=== PATIENT | male | born 1950 | race Caucasian/White ===

== ENCOUNTER 2019-09-26 16:54 | Observation (INO) | payer MEDICARE ==
[2019-09-26] MEDS ORDERED: SODIUM CHLORIDE 0.9% 500 ML 500 ML IV STA (18:19)
[2019-09-26 18:23] LABS: Glucose,Whole Blood 113 mg/dL (75-99)
--- NOTE | 2019-09-26 18:24 | ED ---
General Adult HPI - General Chief complaint: Neuro Symptoms/Deficit Stated complaint: right side weakness/tingling Time Seen by Provider: 09/26/19 18:07 Source: patient, family Mode of arrival: wheelchair Limitations: no limitations - History of Present Illness Initial comments: 69-year-old male patient past medical history significant for diabetes mellitus, high cholesterol, hypertension presents to the emergency department today for evaluation of right sided numbness, tingling, and weakness. Patient states that his symptoms started around 12:30 this afternoon. Patient states that he got out of his vehicle and almost fell to the ground due to weakness in the right leg. Patient states he does have some issues with his niece who didn't think an ything of it and continued onto his water aerobics class. Patient states that once he got out of the pool he noticed that the right side of his body was still feeling tingly and numb. States he was striking his right foot. Patient states that the right side of his face also feels numb and tingly. Patient denies history of similar symptoms. Patient denies any headache, blurry, or double vision. States he is having some intermittent dizziness. Patient's family member deny any difficulty with speech. Denies any recent head injury. Does take a baby aspirin daily. Patient denies any recent rash, fever, chills, shortness breath, chest pain, abdominal pain, nausea, vomiting, diarrhea, cons tipation, back pain, hematuria, dysuria, urinary urgency, urinary frequency, or any other complaints. - Related Data Home Medications Medication Instructions Recorded Confirmed Allopurinol [Zyloprim] 100 mg PO DAILY 09/27/18 09/27/18 Anastrozole [Arimidex] 1 mg PO DAILY 09/27/18 09/27/18 Aspirin 81 mg PO DAILY 09/27/18 09/27/18 Carvedilol [Coreg] 3.125 mg PO DAILY 09/27/18 09/27/18 Cholestyramine/Aspartame 239.4 gm PO DAILY 09/27/18 09/27/18 [Cholestyramine Light Powder] Gabapentin [Neurontin] 300 mg PO DAILY 09/27/18 09/27/18 Gemfibrozil [Lopid] 600 mg PO DAILY 09/27/18 09/27/18 Levothyroxine Sodium [Synthroid] 200 mcg PO DAILY 09/27/18 09/27/18 Linagliptin [Tradjenta] 5 mg PO DAILY 09/27/18 09/27/18 Losartan [Cozaar] 50 mg PO DAILY 09/27/18 09/27/18 Meloxicam 15 mg PO DAILY 09/27/18 09/27/18 Montelukast [Singulair] 10 mg PO DAILY 09/27/18 09/27/18 Potassium Citrate [Potassium 10 meq PO DAILY 09/27/18 09/27/18 Citrate ER] Pravastatin Sodium [Pravachol] 20 mg PO DAILY 09/27/18 09/27/18 Tamsulosin [Flomax] 0.4 mg PO DAILY 09/27/18 09/27/18 Testosterone Cypionate 100 mg IM WEEKLY 09/27/18 09/27/18 [Depo-Testosterone] amLODIPine [Norvasc] 10 mg PO DAILY 09/27/18 09/27/18 metFORMIN HCL 1,000 mg PO BID 09/27/18 09/27/18 Allergies Allergy/AdvReac Type Severity Reaction Status Date / Time sitagliptin [From Januvia] AdvReac Unknown Verified 09/26/19 17:00 tramadol AdvReac Unknown Verified 09/26/19 17:00 Review of Systems ROS Statement: Those systems with pertinent positive or pertinent negative responses have been documented in the HPI. ROS Other: All systems not noted in ROS Statement are negative. Past Medical History Past Medical History: GERD/Reflux, Hyperlipidemia, Hypertension, Sleep Apnea/CPAP/BIPAP Additional Past Medical History / Comment(s): BPH, Gouty Arturitis, testicular disorder, History of Any Multi-Drug Resistant Organisms: None Reported Past Surgical History: Cholecystectomy Past Anesthesia/Blood Transfusion Reactions: No Reported Reaction Past Psychological History: No Psychological Hx Reported Smoking Status: Former smoker Past Alcohol Use History: None Reported Past Drug Use History: None Reported General Exam Limitations: no limitations General appearance: alert, in no apparent distress, other (Physical well- developed, well-nourished elderly male patient in no acute distress. Vital signs upon presentation are temperature 98.0F, pulse 93, respirations 18, blood pressure 171/76, pulse ox 98% on room air.) Eye exam: Present: normal appearance, PERRL, EOMI. Absent: scleral icterus, conjunctival injection, nystagmus, periorbital swelling ENT exam: Present: normal exam, normal oropharynx, mucous membranes moist Respiratory exam: Present: normal lung sounds bilaterally. Absent: respiratory distress, wheezes, rales, rhonchi, stridor Cardiovascular Exam: Present: regular rate, normal rhythm, normal heart sounds. Absent: systolic murmur, diastolic murmur, rubs, gallop, clicks GI/Abdominal exam: Present: soft, normal bowel sounds. Absent: distended, tenderness, guarding, rebound, rigid Neurological exam: Present: alert, oriented X3, CN II-XII intact Expanded Speech: Present: fluid speech Cranial nerves: EOM's Intact: Normal, Tongue Deviation: Normal, Nystagmus: Normal, Facial Sensation: Abnormal Right, Facial Palsy with Forehead Movement: Normal, Facial Palsy without Forehead Movement: Normal Upper motor neuron: Pronator Drift: Abnormal Right Sensory exam: Upper Extremity Light Touch: Abnormal Right, Upper Extremity Pin Prick: Abnormal Right, Lower Extremity Light Touch: Abnormal Right, Lower Extremity Pin Prick: Abnormal Right Motor strength exam: RUE: 5, LUE: 5, RLE: 4, LLE: 5 Eye Response: (4) open spontaneously Motor Response: (6) obeys commands Verbal Response: (5) oriented Jewel Total: 15 Psychiatric exam: Present: normal affect Skin exam: Present: warm, dry, intact, normal color. Absent: rash Course Vital Signs 09/26/19 09/26/19 09/26/19 17:00 18:15 18:30 Temperature 98 F Pulse Rate 93 77 82 Respiratory 18 18 18 Rate Blood Pressure 171/76 173/83 164/84 O2 Sat by Pulse 98 96 94 L Oximetry 09/26/19 09/26/19 09/26/19 18:45 19:00 19:15 Temperature Pulse Rate 76 75 79 Respiratory 16 16 16 Rate Blood Pressure 127/65 135/75 136/66 O2 Sat by Pulse 96 97 97 Oximetry 09/26/19 09/26/19 19:30 20:00 Temperature Pulse Rate 75 82 Respiratory 16 16 Rate Blood Pressure 162/75 151/76 O2 Sat by Pulse 96 95 Oximetry Medical Decision Making - Medical Decision Making 69-year-old male patient passed medical history significant for diabetes mellitus and hypertension presents to the emergency department today for e valuation of right-sided weakness, numbness, and tingling. Symptoms are gone 12:30 this afternoon. Upon arrival patient was still exhibiting symptoms and states that his blood right leg feels more weak than at time of onset. Physical examination did reveal sensation disturbance to the right side, right leg drift, and right leg weakness. He is otherwise neurologically intact. Labs reviewed and were unremarkable. CT brain without contrast was obtained and showed no major abnormalities. Case was discussed with Dr. Baker, neurointervention who has no new recommendations. We will admit to the hospital for further evaluation by neurology. Patient is agreeable with this plan - Lab Data Result diagrams: 09/26/19 18:16 09/26/19 18:16 Lab Results 09/26/19 09/26/19 09/26/19 Range/Units 18:16 18:16 18:16 WBC 10.5 (3.8-10.6) k/uL RBC 6.01 H (4.30-5.90) m/uL Hgb 14.3 (13.0-17.5) gm/dL Hct 45.8 (39.0-53.0) % MCV 76.3 L (80.0-100.0) fL MCH 23.8 L (25.0-35.0) pg MCHC 31.3 (31.0-37.0) g/dL RDW 15.8 H (11.5-15.5) % Plt Count 251 (150-450) k/uL Neutrophils % 70 % Lymphocytes % 18 % Monocytes % 6 % Eosinophils % 4 % Basophils % 0 % Neutrophils # 7.4 (1.3-7.7) k/uL Lymphocytes # 1.9 (1.0-4.8) k/uL Monocytes # 0.6 (0-1.0) k/uL Eosinophils # 0.4 (0-0.7) k/uL Basophils # 0.0 (0-0.2) k/uL Hypochromasia Moderate Microcytosis Slight PT 9.6 (9.0-12.0) sec INR 0.9 (<1.2) APTT 23.5 (22.0-30.0) sec Sodium 138 (137-145) mmol/L Potassium 5.2 H (3.5-5.1) mmol/L Chloride 104 (98-107) mmol/L Carbon Dioxide 23 (22-30) mmol/L Anion Gap 11 mmol/L BUN 17 (9-20) mg/dL Creatinine 0.95 (0.66-1.25) mg/dL Est GFR (CKD-EPI)AfAm >90 (>60 ml/min/1.73 sqM) Est GFR (CKD-EPI)NonAf 81 (>60 ml/min/1.73 sqM) Glucose 110 H (74-99) mg/dL POC Glucose (mg/dL) (75-99) mg/dL POC Glu Brand Engineer ID Calcium 9.4 (8.4-10.2) mg/dL Total Bilirubin 0.6 (0.2-1.3) mg/dL AST 61 H (17-59) U/L ALT 47 (4-49) U/L Alkaline Phosphatase 74 (38-126) U/L Troponin I (0.000-0.034) ng/mL Total Protein 7.6 (6.3-8.2) g/dL Albumin 4.6 (3.5-5.0) g/dL Urine Color Urine Appearance (Clear) Urine pH (5.0-8.0) Ur Specific [place] (1.001-1.035) Urine Protein (Negative) Urine Glucose (UA) (Negative) Urine Ketones (Negative) Urine Blood (Negative) Urine Nitrite (Negative) Urine Bilirubin (Negative) Urine Urobilinogen (<2.0) mg/dL Ur Leukocyte Esterase (Negative) Urine RBC (0-5) /hpf Urine WBC (0-5) /hpf Urine Mucus (None) /hpf 09/26/19 09/26/19 09/26/19 Range/Units 18:16 18:22 19:09 WBC (3.8-10.6) k/uL RBC (4.30-5.90) m/uL Hgb (13.0-17.5) gm/dL Hct (39.0-53.0) % MCV (80.0-100.0) fL MCH (25.0-35.0) pg MCHC (31.0-37.0) g/dL RDW (11.5-15.5) % Plt Count (150-450) k/uL Neutrophils % % Lymphocytes % % Monocytes % % Eosinophils % % Basophils % % Neutrophils # (1.3-7.7) k/uL Lymphocytes # (1.0-4.8) k/uL Monocytes # (0-1.0) k/uL Eosinophils # (0-0.7) k/uL Basophils # (0-0.2) k/uL Hypochromasia Microcytosis PT (9.0-12.0) sec INR (<1.2) APTT (22.0-30.0) sec Sodium (137-145) mmol/L Potassium (3.5-5.1) mmol/L Chloride (98-107) mmol/L Carbon Dioxide (22-30) mmol/L Anion Gap mmol/L BUN (9-20) mg/dL Creatinine (0.66-1.25) mg/dL Est GFR (CKD-EPI)AfAm (>60 ml/min/1.73 sqM) Est GFR (CKD-EPI)NonAf (>60 ml/min/1.73 sqM) Glucose (74-99) mg/dL POC Glucose (mg/dL) 113 H (75-99) mg/dL POC Glu Brand Engineer ID Jack Bentley Calcium (8.4-10.2) mg/dL Total Bilirubin (0.2-1.3) mg/dL AST (17-59) U/L ALT (4-49) U/L Alkaline Phosphatase (38-126) U/L Troponin I <0.012 (0.000-0.034) ng/mL Total Protein (6.3-8.2) g/dL Albumin (3.5-5.0) g/dL Urine Color Light Yellow Urine Appearance Clear (Clear) Urine pH 6.0 (5.0-8.0) Ur Specific [place] 1.032 (1.001-1.035) Urine Protein Trace H (Negative) Urine Glucose (UA) Negative (Negative) Urine Ketones 1+ H (Negative) Urine Blood Small H (Negative) Urine Nitrite Negative (Negative) Urine Bilirubin Negative (Negative) Urine Urobilinogen <2.0 (<2.0) mg/dL Ur Leukocyte Esterase Negative (Negative) Urine RBC 3 (0-5) /hpf Urine WBC <1 (0-5) /hpf Urine Mucus Rare H (None) /hpf - Radiology Data Radiology results: report reviewed, image reviewed CT brain without contrast was obtained. Report reviewed in its entirety. Impression by Dr. Chase Darden shows no acute process. CT angiography of the head and neck was obtained. Report reviewed in its entirety. Impression by Dr. Chase Darden shows no significant abnormality is seen. Two-view x-ray of the chest is obtained. Report is reviewed in its entirety. Impression by Dr. Chase Darden shows no acute process. Disposition Clinical Impression: CVA (cerebral vascular accident) Disposition: ADMITTED IP TO THIS [facility] Condition: Serious Referrals: Sunny Mckeon DO [Primary Care Provider] - 1-2 days Decision to Admit Reason: Admit from EC Decision Date: 09/26/19 Decision Time: 20:12
[2019-09-26 18:49] LABS: Basophils % (A) 0 %; Eosinophils # (A) 0.4 k/uL (0-0.7); Eosinophils % (A) 4 %; HCT 45.8 % (39.0-53.0); HGB 14.3 gm/dL (13.0-17.5); Hypochromasia Moderate; Lymphocytes # (A) 1.9 k/uL (1.0-4.8); Lymphocytes % (A) 18 %; MCH 23.8 pg (25.0-35.0); MCHC 31.3 g/dL (31.0-37.0); MCV 76.3 fL (80.0-100.0); Mean Platelet Volume 7.1; Microcytosis Slight; Monocytes # (A) 0.6 k/uL (0-1.0); Monocytes % (A) 6 %; Neutrophils # (A) 7.4 k/uL (1.3-7.7); Neutrophils % (A) 70 %; Platelet Count 251 k/uL (150-450); RBC 6.01 m/uL (4.30-5.90); RDW 15.8 % (11.5-15.5); WBC 10.5 k/uL (3.8-10.6)
[2019-09-26 18:54] LABS: ALT 47 U/L (4-49); AST 61 U/L (17-59); African American GFR (CKD) >90 (>60 ml/min/1.73 sqM); Albumin 4.6 g/dL (3.5-5.0); Alkaline Phosphatase 74 U/L (38-126); Anion Gap 11 mmol/L; Blood Urea Nitrogen 17 mg/dL (9-20); Calcium 9.4 mg/dL (8.4-10.2); Carbon Dioxide 23 mmol/L (22-30); Chloride 104 mmol/L (98-107); Glucose 110 mg/dL (74-99); Non-African American GFR(CKD) 81 (>60 ml/min/1.73 sqM); Sodium 138 mmol/L (137-145); Total Bilirubin 0.6 mg/dL (0.2-1.3); Total Protein 7.6 g/dL (6.3-8.2)
[2019-09-26 18:55] LABS: INR 0.9 (<1.2); Partial Thromboplastin Time 23.5 sec (22.0-30.0); Prothrombin Time 9.6 sec (9.0-12.0)
[2019-09-26 18:57] LABS: Potassium 5.2 mmol/L (3.5-5.1)
--- NOTE | 2019-09-26 19:03 | CT ---
EXAMINATION: CT brain wo con DATE AND TIME: 09/26/2019 6:43 PM CLINICAL INDICATION: PHH; Neuro deficit, acute, stroke suspected TECHNIQUE: Standard departmental protocol. DLP: 1176.8 mGy-cm COMPARISON: None. FINDINGS: The calvarium is intact. There is no intracranial hemorrhage. There is no intracranial mass or mass effect. No definite new intra-axial or extra-axial attenuation defect. The paranasal sinuses, middle ear cavities, and mastoid sinus air cells are clear. The orbits are unremarkable. IMPRESSION: NO ACUTE PROCESS.
--- NOTE | 2019-09-26 19:13 | CT ---
EXAMINATION TYPE: CODE STROKE: CTA head neck DATE OF EXAM: 09/26/2019 HISTORY: Right sided weakness and numbness. COMPARISON: CT DLP: 764.1 mGycm. Automated Exposure Control for Dose Reduction was Utilized. TECHNIQUE: CTA scan of the neck is performed with IV Contrast, patient injected with 65ml mL of Isov ue 370, axial images are obtained, coronal and sagittal reformatted images are reviewed. Three-D carlton nstructed images are created on an independent workstation and reviewed. NECK CTA FINDINGS CAROTID ARTERIAL SYSTEMS: The right CCA is tortuous but widely patent. The right ICA is prominently tortuous but patent without hemodynamically significant stenosis or dissection. The right ECA and its branches are patent withou t hemodynamically significant stenosis. The left CCA and ICA are tortuous but are without hemodynamically significant stenosis or dissection. Left ECA and its branches are patent without hemodynamic significant stenosis. VERTEBRAL ARTERY SYSTEMS: Both the right and left vertebral arteries are widely patent throughout the ir cervical course. OTHER: No incidentals. HEAD CTA FINDINGS ANTERIOR ARTERIAL CIRCULATION: Widely patent without evidence of the significant stenosis, filling de fect, or aneurysm. POSTERIOR ARTERIAL CIRCULATION: Widely patent without evidence of the significant stenosis, filling d efect, or aneurysm. OTHER: Contrast enhancement pattern is negative as seen. There are no incidental findings. IMPRESSION: NO SIGNIFICANT ABNORMALITY IS SEEN.
[2019-09-26 19:22] LABS: Appearance,Urine Clear (Clear); Bilirubin,Urine Negative (Negative); Blood,Urine Small (Negative); Color,Urine Light Yellow; Glucose,Urine (UA) Negative (Negative); Ketones,Urine 1+ (Negative); Leukocyte Esterase,Urine Negative (Negative); Mucus,Urine Rare /hpf; Nitrite,Urine Negative (Negative); Protein,Urine Trace (Negative); RBC,Urine 3 /hpf (0-5); Specific Gravity,Urine 1.032 (1.001-1.035); Urobilinogen,Urine <2.0 mg/dL (<2.0); WBC,Urine <1 /hpf (0-5)
--- NOTE | 2019-09-26 19:33 | XR ---
EXAMINATION: XR chest 2V DATE AND TIME: 09/26/2019 6:46 PM CLINICAL INDICATION: PHH; altered mental status TECHNIQUE: Departmental protocol COMPARISON: None FINDINGS: The lungs are clear. The pleural spaces are negative. The cardiac silhouette is mildly enlarged. The remainder of the mediastinal silhouette is unremarkabl e. The skeletal structures and soft tissues are negative for acute findings. IMPRESSION: NO ACUTE PROCESS.
[2019-09-26] MEDS ORDERED: ONDANSETRON 4 MG/2 ML VIAL IVP PRN (20:12)
[2019-09-26] MEDS ORDERED: NALOXONE 0.4 MG/ML 1 ML VIAL IV PRN (20:12)
[2019-09-26] MEDS ORDERED: ASPIRIN 81 MG PO STA (20:12)
[2019-09-26] MEDS ORDERED: metFORMIN 500 MG TAB PO STA (20:58)
[2019-09-26] MEDS ORDERED: INSULIN DETEMIR (LEVEMIR) 100 UNIT/ML SYR SQ STA ×2 (20:58→22:03)
[2019-09-26 21:29] LABS: Glucose,Whole Blood 115 mg/dL (75-99)
[2019-09-27 06:15] LABS: Glucose,Whole Blood 85 mg/dL (75-99)
[2019-09-27] MEDS: ASPIRIN 325 MG TAB PO SCH (09:16)
[2019-09-27] MEDS ORDERED: LOSARTAN 25 MG TAB PO PRN (11:21)
--- NOTE | 2019-09-27 12:35 | P.HPIM ---
History of Present Illness 68-year-old pleasant male came in with complaints of tingling and numbness in the right cheek area localized in the small area of the cheek along with possible weakness in the right leg upon examination patient doesn't have any weakness in both upper leg upper limbs and lower limbs patient does have knee issues and miniscule issues. Patient had a fall because his knees gave up yesterday. Patient's tingling M9 numbness in the face resolved at this time. Patient denied any other headache any other focal weakness visual problems hearing problems. Patient is complaining of some intermittent dizziness. Review of Systems REVIEW OF SYSTEMS: CONSTITUTIONAL: No fever, no malaise, no fatigue. HEENT: No recent visual problems or hearing problems. Denied any sore throat. CARDIOVASCULAR: No chest pain, orthopnea, PND, no palpitations, no syncope. PULMONARY: No shortness of breath, no cough, no hemoptysis. GASTROINTESTINAL: No diarrhea, no nausea, no vomiting, no abdominal pain. NEUROLOGICAL: No headaches, HEMATOLOGICAL: Denies any bleeding or petechiae. GENITOURINARY: Denies any burning micturition, frequency, or urgency. MUSCULOSKELETAL/RHEUMATOLOGICAL: Denies any joint pain, swelling, or any muscle pain. ENDOCRINE: Denies any polyuria or polydipsia. The rest of the 14-point review of systems is negative. Past Medical History Past Medical History: GERD/Reflux, Hyperlipidemia, Hypertension, Sleep Apnea/CPAP/BIPAP Additional Past Medical History / Comment(s): BPH, Gouty Arturitis, testicular disorder, History of Any Multi-Drug Resistant Organisms: None Reported Past Surgical History: Cholecystectomy Past Anesthesia/Blood Transfusion Reactions: No Reported Reaction Past Psychological History: No Psychological Hx Reported Smoking Status: Former smoker Past Alcohol Use History: None Reported Past Drug Use History: None Reported Medications and Allergies Home Medications Medication Instructions Recorded Confirmed Type Allopurinol [Zyloprim] 100 mg PO DAILY 09/27/18 09/26/19 History Anastrozole [Arimidex] 1 mg PO TH 09/27/18 09/26/19 History Aspirin 81 mg PO DAILY 09/27/18 09/26/19 History Levothyroxine Sodium [Synthroid] 200 mcg PO DAILY@0700 09/27/18 09/26/19 History Meloxicam 15 mg PO DAILY 09/27/18 09/26/19 History Potassium Citrate [Potassium 20 meq PO BID 09/27/18 09/26/19 History Citrate ER] Pravastatin Sodium [Pravachol] 20 mg PO HS 09/27/18 09/26/19 History Tamsulosin [Flomax] 0.8 mg PO DAILY 09/27/18 09/26/19 History Testosterone Cypionate 100 mg IM [id number] 09/27/18 09/26/19 History [Depo-Testosterone] amLODIPine [Norvasc] 10 mg PO DAILY 09/27/18 09/26/19 History metFORMIN HCL 1,000 mg PO BID 09/27/18 09/26/19 History Acetaminophen Tab [Tylenol] 650 mg PO BID PRN 09/26/19 09/26/19 History Cholecalciferol [Vitamin D3 (25 5,000 unit PO DAILY@0700 09/26/19 09/26/19 History Mcg = 1000 Iu)] Cholestyramine/Aspartame 1 packet PO DAILY 09/26/19 09/26/19 History [Cholestyramine Light Packet] Cinnamon Bark [Cinnamon] 1,000 mg PO DAILY 09/26/19 09/26/19 History Cyanocobalamin (Vitamin B-12) 5,000 mcg PO DAILY 09/26/19 09/26/19 History [Vitamin B-12] Insulin Glargine,Hum.rec.anlog 58 unit SQ BID 09/26/19 09/26/19 History [Lantus Solostar] Krill Oil 500 mg PO DAILY 09/26/19 09/26/19 History Losartan [Cozaar] 25 mg PO DAILY PRN 09/26/19 09/26/19 History Multivit-Min/FA/Lycopen/Lutein 1 tab PO DAILY 09/26/19 09/26/19 History [Centrum Silver Men Tablet] Omeprazole [PriLOSEC] 20 mg PO DAILY@0700 09/26/19 09/26/19 History Pyridoxine [Vitamin B-6] 25 mg PO DAILY@0700 09/26/19 09/26/19 History Zinc 50 mg PO DAILY 09/26/19 09/26/19 History Allergies Allergy/AdvReac Type Severity Reaction Status Date / Time sitagliptin [From ] AdvReac Unknown Verified 09/26/19 22:13 tramadol AdvReac Unknown Verified 09/26/19 22:13 Physical Exam Vitals: Vital Signs Temp Pulse Pulse Resp BP BP Pulse Ox 09/27/19 08:00 97.7 F 72 16 148/78 97 09/27/19 05:13 18 09/27/19 04:54 98 F 76 18 170/86 98 09/27/19 03:30 84 18 151/78 96 09/26/19 23:41 76 16 154/76 96 09/26/19 22:30 98.0 F 75 16 149/76 95 09/26/19 21:30 85 16 162/75 97 09/26/19 21:00 78 16 154/66 95 09/26/19 20:30 78 16 158/84 96 09/26/19 20:00 82 16 151/76 95 09/26/19 19:30 75 16 162/75 96 09/26/19 19:15 79 16 136/66 97 09/26/19 19:00 75 16 135/75 97 09/26/19 18:45 76 16 127/65 96 09/26/19 18:30 82 18 164/84 94 L 09/26/19 18:15 77 18 173/83 96 09/26/19 17:00 98 F 93 18 171/76 98 Intake and Output 09/26/19 09/27/19 09/27/19 22:59 06:59 14:59 Intake Total 240 Balance 240 Intake: Oral 240 Other: Voiding Method Toilet Toilet # Voids 1 Weight 174.179 kg 168.5 kg PHYSICAL EXAMINATION: GENERAL: The patient is alert and oriented x3, not in any acute distress. Well developed, well nourished. HEENT: Pupils are round and equally reacting to light. EOMI. No scleral icterus. No conjunctival pallor. Normocephalic, atraumatic. No pharyngeal erythema. No thyromegaly. CARDIOVASCULAR: S1 and S2 present. No murmurs, rubs, or gallops. PULMONARY: Chest is clear to auscultation, no wheezing or crackles. ABDOMEN: Soft, nontender, nondistended, normoactive bowel sounds. No palpable organomegaly. MUSCULOSKELETAL: No joint swelling or deformity. EXTREMITIES: No cyanosis, clubbing, or pedal edema. NEUROLOGICAL: Gross neurological examination did not reveal any focal deficits. SKIN: No rashes. Results CBC & Chem 7: 09/26/19 18:16 09/26/19 18:16 Labs: Abnormal Lab Results - Last 24 Hours (Table) 09/26/19 09/26/19 09/26/19 Range/Units 18:16 18:16 18:22 RBC 6.01 H (4.30-5.90) m/uL MCV 76.3 L (80.0-100.0) fL MCH 23.8 L (25.0-35.0) pg RDW 15.8 H (11.5-15.5) % Potassium 5.2 H (3.5-5.1) mmol/L Glucose 110 H (74-99) mg/dL POC Glucose (mg/dL) 113 H (75-99) mg/dL AST 61 H (17-59) U/L Urine Protein (Negative) Urine Ketones (Negative) Urine Blood (Negative) Urine Mucus (None) /hpf 09/26/19 09/26/19 Range/Units 19:09 21:28 RBC (4.30-5.90) m/uL MCV (80.0-100.0) fL MCH (25.0-35.0) pg RDW (11.5-15.5) % Potassium (3.5-5.1) mmol/L Glucose (74-99) mg/dL POC Glucose (mg/dL) 115 H (75-99) mg/dL AST (17-59) U/L Urine Protein Trace H (Negative) Urine Ketones 1+ H (Negative) Urine Blood Small H (Negative) Urine Mucus Rare H (None) /hpf Thrombosis Risk Factor Assmnt - Choose All That Apply Each Risk Factor Represents 2 Points: Age 61-74 years Thrombosis Risk Factor Assessment Total Risk Factor Score: 2 Thrombosis Risk Factor Assessment Level: Low Risk Assessment and Plan Plan: symptoms of tingling and numbness of the right side of the face his symptomology is not consistent with stroke or TIA probably related to local nerve causes. Patient was also complaining of some weakness and tingling numbness in the right hand which is also secondary to local nerve causes there is no evidence of CVA or TIA. Patient will be evaluated by neurology although workup is done except for the echocardiogram which will be ordered CT angios the head and neck did not show any significant abnormality CT of the head was done as well which did not show any significant abnormality I do not believe we'll need to change antiplatelet therapy patient takes aspirin at home which she will continue cleared by neurology patient will be discharged today. Likely there is no evidence of TIA or CVA -gastro-esophageal reflux disease -hyperlipemia -Hypertension -Sleep apnea For above-mentioned chronic medical problems patient will resume his home medications.
--- NOTE | 2019-09-27 12:35 | P.DS ---
Providers Date of admission: 09/26/19 19:57 Attending physician: Susanna Fowler Consults: 09/26/19 20:12 Consult Physician Routine Consulting Provider: Reyna Shah Consult Reason/Comments: CVA Do you want consulting provider notified?: Yes [facility] Course: please refer to HPI for further details Patient Condition at Discharge: Serious Plan - Discharge Summary Discharge Rx Participant: No New Discharge Prescriptions: No Action Aspirin 81 mg PO DAILY metFORMIN HCL 1,000 mg PO BID amLODIPine [Norvasc] 10 mg PO DAILY Testosterone Cypionate [Depo-Testosterone] 100 mg IM [id number] Tamsulosin [Flomax] 0.8 mg PO DAILY Pravastatin Sodium [Pravachol] 20 mg PO HS Potassium Citrate [Potassium Citrate ER] 20 meq PO BID Meloxicam 15 mg PO DAILY Levothyroxine Sodium [Synthroid] 200 mcg PO DAILY@0700 Anastrozole [Arimidex] 1 mg PO TH Allopurinol [Zyloprim] 100 mg PO DAILY Omeprazole [PriLOSEC] 20 mg PO DAILY@0700 Pyridoxine [Vitamin B-6] 25 mg PO DAILY@0700 Cholecalciferol [Vitamin D3 (25 Mcg = 1000 Iu)] 5,000 unit PO DAILY@0700 Zinc 50 mg PO DAILY Multivit-Min/FA/Lycopen/Lutein [Centrum Silver Men Tablet] 1 tab PO DAILY Krill Oil 500 mg PO DAILY Cinnamon Bark [Cinnamon] 1,000 mg PO DAILY Acetaminophen Tab [Tylenol] 650 mg PO BID PRN PRN Reason: Pain Cyanocobalamin (Vitamin B-12) [Vitamin B-12] 5,000 mcg PO DAILY Cholestyramine/Aspartame [Cholestyramine Light Packet] 1 packet PO DAILY Insulin Glargine,Hum.rec.anlog [Lantus Solostar] 58 unit SQ BID Losartan [Cozaar] 25 mg PO DAILY PRN PRN Reason: HIGH BLOOD PRESSURE Discharge Medication List Allopurinol [Zyloprim] 100 mg PO DAILY 09/27/18 [History] Anastrozole [Arimidex] 1 mg PO TH 09/27/18 [History] Aspirin 81 mg PO DAILY 09/27/18 [History] Levothyroxine Sodium [Synthroid] 200 mcg PO DAILY@0700 09/27/18 [History] Meloxicam 15 mg PO DAILY 09/27/18 [History] Potassium Citrate [Potassium Citrate ER] 20 meq PO BID 09/27/18 [History] Pravastatin Sodium [Pravachol] 20 mg PO HS 09/27/18 [History] Tamsulosin [Flomax] 0.8 mg PO DAILY 09/27/18 [History] Testosterone Cypionate [Depo-Testosterone] 100 mg IM [id number] 09/27/18 [History] amLODIPine [Norvasc] 10 mg PO DAILY 09/27/18 [History] metFORMIN HCL 1,000 mg PO BID 09/27/18 [History] Acetaminophen Tab [Tylenol] 650 mg PO BID PRN 09/26/19 [History] Cholecalciferol [Vitamin D3 (25 Mcg = 1000 Iu)] 5,000 unit PO DAILY@0700 09/26/19 [History] Cholestyramine/Aspartame [Cholestyramine Light Packet] 1 packet PO DAILY 09/26/19 [History] Cinnamon Bark [Cinnamon] 1,000 mg PO DAILY 09/26/19 [History] Cyanocobalamin (Vitamin B-12) [Vitamin B-12] 5,000 mcg PO DAILY 09/26/19 [History] Insulin Glargine,Hum.rec.anlog [Lantus Solostar] 58 unit SQ BID 09/26/19 [History] Krill Oil 500 mg PO DAILY 09/26/19 [History] Losartan [Cozaar] 25 mg PO DAILY PRN 09/26/19 [History] Multivit-Min/FA/Lycopen/Lutein [Centrum Silver Men Tablet] 1 tab PO DAILY 09/26/19 [History] Omeprazole [PriLOSEC] 20 mg PO DAILY@0700 09/26/19 [History] Pyridoxine [Vitamin B-6] 25 mg PO DAILY@0700 09/26/19 [History] Zinc 50 mg PO DAILY 09/26/19 [History] Follow up Appointment(s)/Referral(s): Sunny Mckeon DO [Primary Care Provider] - 3 Days Discharge Disposition: HOME SELF-CARE
[2019-09-27 12:43] LABS: Glucose,Whole Blood 105 mg/dL (75-99)
--- NOTE | 2019-09-27 13:20 | P.CNNES ---
History of Present Illness Consult date: 09/27/19 Requesting physician: Allyssa Arevalo Reason for Consult: CVA History of Present Illness: Patient is a 69-year-old right-hand dominant male with history of diabetes, hyperlipidemia, hypertension, admitted for evaluation of right-sided numbness, tingling and weakness. Patient states that yesterday at around 12:30 PM, he got out of the car and almost fell, as his right leg gave out. He sat down, and symptoms improved. He uses a Rollator walker to go to water aerobics that he was planning to go. He stayed in the water for 1-1/2 hours. He was mainly using his arms, which was fine. However after he was done, got up, noticed his right leg was dragging, right knee and right leg was giving out. He was using c ane in the right hand, and noticed his right hand was SO giving way. As his symptoms persisted, he came to the ER at 4:54 PM. Patient was not a candidate for TPA, as he came outside the window for TPA. Patient states that overnight his symptoms have improved, he has been feeling more steady walking and not dragging his right leg. Still not back to baseline. His right hand is slightly more tingling than usual. Denies any slurred speech, facial droop. Patient underwent EKG showed normal sinus rhythm with sinus arrhythmia. Inferior infarct, age undetermined. Chest x-ray showed no acute process. CTA of head and neck was normal with no evidence of stenosis or aneurysm. Bilateral ICA and CCA were tortuous, but no significant stenosis or dissection. Patient's previous lipid panel from 06/21/2018 showed cholesterol 165, LDL 79.6, HDL 53 and triglycerides 162. Hemoglobin A1c 6.7 on 06/21/2018. Patient has history of diabetes for 6-7 years. He had history of PE in the past for which she was on Coumadin for years. Coumadin was discontinued about 5-6 years ago and was placed on aspirin 81 mg daily. He takes aspirin 81 mg daily, but 2 days a week he takes 2 baby aspirins. He smoked in the past, quit in 1986. Review of Systems As above in detail. All other review of systems completely unremarkable. Denies chest pain shortness of breath wheezing cough, nausea vomiting diarrhea. Past Medical History Past Medical History: GERD/Reflux, Hyperlipidemia, Hypertension, Sleep Apnea/CPAP/BIPAP Additional Past Medical History / Comment(s): BPH, Gouty Arturitis, testicular disorder, History of Any Multi-Drug Resistant Organisms: None Reported Past Surgical History: Cholecystectomy Past Anesthesia/Blood Transfusion Reactions: No Reported Reaction Past Psychological History: No Psychological Hx Reported Smoking Status: Former smoker Past Alcohol Use History: None Reported Past Drug Use History: None Reported Medications and Allergies Home Medications Medication Instructions Recorded Confirmed Type Allopurinol [Zyloprim] 100 mg PO DAILY 09/27/18 09/26/19 History Anastrozole [Arimidex] 1 mg PO TH 09/27/18 09/26/19 History Aspirin 81 mg PO DAILY 09/27/18 09/26/19 History Levothyroxine Sodium [Synthroid] 200 mcg PO DAILY@0700 09/27/18 09/26/19 History Meloxicam 15 mg PO DAILY 09/27/18 09/26/19 History Potassium Citrate [Potassium 20 meq PO BID 09/27/18 09/26/19 History Citrate ER] Pravastatin Sodium [Pravachol] 20 mg PO HS 09/27/18 09/26/19 History Tamsulosin [Flomax] 0.8 mg PO DAILY 09/27/18 09/26/19 History Testosterone Cypionate 100 mg IM [id number] 09/27/18 09/26/19 History [Depo-Testosterone] amLODIPine [Norvasc] 10 mg PO DAILY 09/27/18 09/26/19 History metFORMIN HCL 1,000 mg PO BID 09/27/18 09/26/19 History Acetaminophen Tab [Tylenol] 650 mg PO BID PRN 09/26/19 09/26/19 History Cholecalciferol [Vitamin D3 (25 5,000 unit PO DAILY@0700 09/26/19 09/26/19 History Mcg = 1000 Iu)] Cholestyramine/Aspartame 1 packet PO DAILY 09/26/19 09/26/19 History [Cholestyramine Light Packet] Cinnamon Bark [Cinnamon] 1,000 mg PO DAILY 09/26/19 09/26/19 History Cyanocobalamin (Vitamin B-12) 5,000 mcg PO DAILY 09/26/19 09/26/19 History [Vitamin B-12] Insulin Glargine,Hum.rec.anlog 58 unit SQ BID 09/26/19 09/26/19 History [Lantus Solostar] Krill Oil 500 mg PO DAILY 09/26/19 09/26/19 History Losartan [Cozaar] 25 mg PO DAILY PRN 09/26/19 09/26/19 History Multivit-Min/FA/Lycopen/Lutein 1 tab PO DAILY 09/26/19 09/26/19 History [Centrum Silver Men Tablet] Omeprazole [PriLOSEC] 20 mg PO DAILY@0700 09/26/19 09/26/19 History Pyridoxine [Vitamin B-6] 25 mg PO DAILY@0700 09/26/19 09/26/19 History Zinc 50 mg PO DAILY 09/26/19 09/26/19 History Allergies Allergy/AdvReac Type Severity Reaction Status Date / Time sitagliptin [From Jul] AdvReac Unknown Verified 09/26/19 22:13 tramadol AdvReac Unknown Verified 09/26/19 22:13 Physical Examination - Vital Signs Vital Signs: Vital Signs Temp Pulse Pulse Resp BP BP Pulse Ox 09/27/19 08:00 97.7 F 72 16 148/78 97 09/27/19 05:13 18 09/27/19 04:54 98 F 76 18 170/86 98 09/27/19 03:30 84 18 151/78 96 09/26/19 23:41 76 16 154/76 96 09/26/19 22:30 98.0 F 75 16 149/76 95 09/26/19 21:30 85 16 162/75 97 09/26/19 21:00 78 16 154/66 95 09/26/19 20:30 78 16 158/84 96 09/26/19 20:00 82 16 151/76 95 09/26/19 19:30 75 16 162/75 96 09/26/19 19:15 79 16 136/66 97 09/26/19 19:00 75 16 135/75 97 09/26/19 18:45 76 16 127/65 96 09/26/19 18:30 82 18 164/84 94 L 09/26/19 18:15 77 18 173/83 96 09/26/19 17:00 98 F 93 18 171/76 98 Intake and Output 09/26/19 09/27/19 09/27/19 22:59 06:59 14:59 Intake Total 240 Balance 240 Intake: Oral 240 Other: Voiding Method Toilet Toilet # Voids 1 Weight 174.179 kg 168.5 kg On examination patient is an elderly male, in no acute distress. He is alert and awake, oriented to time place and person. Speech and language functions are normal. Attention and concentration fund of knowledge is adequate. On cranial nerve examination pupils are round and reactive to light, visual pimentel are full on confrontation, extraocular muscles intact. Face is symmetric, tongue protrudes the midline. Palatal elevation and sensation normal on muscle strength testing patient has very mild right drift. The strength appears normal in arms and legs distally and proximally. Reflexes are 1+ and plantars downgoing. Sensory touch is equal. No ataxia for [id number] testing. Tone and bulk of muscles normal. Patient walked with his 2 canes, and appeared quite steady. He feels much improved, although not back to baseline yet. Results - Laboratory Findings CBC and BMP: 09/26/19 18:16 09/26/19 18:16 Abnormal Lab Findings: Abnormal Labs 09/26/19 09/26/19 09/26/19 18:16 18:16 18:22 RBC 6.01 H MCV 76.3 L MCH 23.8 L RDW 15.8 H Potassium 5.2 H Glucose 110 H POC Glucose (mg/dL) 113 H AST 61 H Urine Protein Urine Ketones Urine Blood Urine Mucus 09/26/19 09/26/19 09/27/19 19:09 21:28 12:41 RBC MCV MCH RDW Potassium Glucose POC Glucose (mg/dL) 115 H 105 H AST Urine Protein Trace H Urine Ketones 1+ H Urine Blood Small H Urine Mucus Rare H Assessment and Plan Assessment: * 69-year-old male admitted with possible TIA/CVA. Symptoms suggestive of possible lacunar stroke involving internal capsule, or subcortical region. Rule out embolic event. * Hypertension * Diabetes * Hyperlipidemia * Morbid obesity * History of PE in the past. Plan: * MRI of the brain, if possible to evaluate for acute stroke. * 2-D echo has been completed, results pending. * We will check fasting a.m. lipid panel, hemoglobin A1c. * Patient will be placed on dual antiplatelet medication for 3 weeks, then stay with monotherapy with Plavix 75 mg daily for secondary stroke prevention, as patient has failed aspirin regimen. * Neurology coverage not available on the weekend. * Please perfect serve me if there is any concerns over the weekend.
[2019-09-27] MEDS: CLOPIDOGREL 75 MG TAB PO SCH (13:35)
[2019-09-27 17:22] LABS: Glucose,Whole Blood 105 mg/dL (75-99)
[2019-09-27] MEDS ORDERED: ALPRAZolam 0.25 MG TAB PO STA (17:34)
[2019-09-27] MEDS: INSULIN DETEMIR (LEVEMIR) 100 UNIT/ML SYR SQ SCH (18:36)
[2019-09-27 20:58] LABS: Glucose,Whole Blood 215 mg/dL (75-99)
[2019-09-27] MEDS ORDERED: INSULIN DETEMIR (LEVEMIR) 100 UNIT/ML SYR SQ SCH (21:00)
[2019-09-27] MEDS ORDERED: PRAVASTATIN SODIUM 20 MG TAB PO SCH (21:00)
[2019-09-27 21:58] LABS: Hemoglobin A1C 6.8 % (4.0-6.0)
[2019-09-27] MEDS: ACETAMINOPHEN TAB 325 MG TAB PO PRN (23:47)
[2019-09-28] MEDS: INSULIN DETEMIR (LEVEMIR) 100 UNIT/ML SYR SQ SCH (01:13)
[2019-09-28] MEDS ORDERED: INSULIN DETEMIR (LEVEMIR) 100 UNIT/ML SYR SQ SCH (06:08)
[2019-09-28 06:26] LABS: Glucose,Whole Blood 90 mg/dL (75-99)
[2019-09-28] MEDS ORDERED: LEVOTHYROXINE 100 MCG TAB PO SCH (06:30)
[2019-09-28 07:21] LABS: Cholesterol 190 mg/dL (<200); HDL Cholesterol 40 mg/dL (40-60); LDL Cholesterol,Calculated 94 mg/dL (0-99); Triglycerides 281 mg/dL (<150)
[2019-09-28] MEDS ORDERED: PANTOPRAZOLE 40 MG TABLET PO SCH (07:30)
[2019-09-28 07:33] VITALS: BP 149/77; PULSE 68; RESP 18; TEMP 97.9
[2019-09-28] MEDS: ASPIRIN 325 MG TAB PO SCH (07:40)
[2019-09-28] MEDS: CLOPIDOGREL 75 MG TAB PO SCH (07:40)
[2019-09-28] MEDS: ACETAMINOPHEN TAB 325 MG TAB PO PRN (07:40)
--- NOTE | 2019-09-28 07:58 | ECHOF ---
Referral Reason:cva MEASUREMENTS -------- HEIGHT: 182.9 cm WEIGHT: 168.3 kg BP: 170/86 RVIDd: 4.2 cm (< 3.3) IVSd: 2.0 cm (0.6 - 1.1) LVIDd: 5.8 cm (3.9 - 5.3) LVPWd: 1.8 cm (0.6 - 1.1) IVSs: 2.8 cm LVIDs: 3.5 cm LVPWs: 2.4 cm LA Diam: 3.8 cm (2.7 - 3.8) LAESV Index (A-L): 28.16 ml/m Ao Diam: 4.0 cm (2.0 - 3.7) AV Cusp: 2.3 cm (1.5 - 2.6) MV EXCURSION: 19.089 mm (> 18.000) MV EF SLOPE: 57 mm/s (70 - 150) EPSS: 1.5 cm MV E Holland: 0.91 m/s MV DecT: 264 ms MV A Holland: 1.07 m/s MV E/A Ratio: 0.85 RAP: 5.00 mmHg RVSP: 35.77 mmHg TAPSE: 25.51 mm FINDINGS -------- Sinus rhythm. This was a technically difficult study with suboptimal views. The left ventricular size is normal. There is severe concentric left ventricular hypertrophy. Ove rall left ventricular systolic function is low-normal with, an EF between 50 - 55 %. The right ventricle is moderately enlarged. Normal LA size by volume 22+/-6 ml/m2. The right atrium is normal in size. Interatrial and interventricular septum intact. The aortic valve is trileaflet and appears structurally normal. The mitral valve is normal. Mild tricuspid regurgitation present. There is mild pulmonary hypertension. The right ventricular systolic pressure, as measured by Doppler, is 35.77mmHg. Trace/mild (physiologic) pulmonic regurgitation. The aortic root is dilated measuring 4.0cm. IVC Not well visulized. There is no pericardial effusion. CONCLUSIONS -------- 1. Sinus rhythm. 2. This was a technically difficult study with suboptimal views. 3. The left ventricular size is normal. 4. There is severe concentric left ventricular hypertrophy. 5. Overall left ventricular systolic function is low-normal with, an EF between 50 - 55 %. 6. The right ventricle is moderately enlarged. 7. Normal LA size by volume 22+/-6 ml/m2. 8. The right atrium is normal in size. 9. Interatrial and interventricular septum intact. 10. The aortic valve is trileaflet and appears structurally normal. 11. The mitral valve is normal. 12. Mild tricuspid regurgitation present. 13. There is mild pulmonary hypertension. 14. The right ventricular systolic pressure, as measured by Doppler, is 35.77mmHg. 15. Trace/mild (physiologic) pulmonic regurgitation. 16. The aortic root is dilated measuring 4.0cm. 17. IVC Not well visulized. 18. There is no pericardial effusion. [employer]: Susan Johns RDCS
[2019-09-28] MEDS ORDERED: ALLOPURINOL 100 MG TAB PO SCH (09:00)
[2019-09-28] MEDS ORDERED: metFORMIN 500 MG TAB PO SCH (09:00)
[2019-09-28] MEDS ORDERED: CHOLESTYRAMINE (WITH SUGAR) 4 GM PACKET PO SCH (09:00)
[2019-09-28] MEDS ORDERED: amLODIPine 10 MG TAB PO SCH (09:00)
[2019-09-28] MEDS ORDERED: TAMSULOSIN 0.4 MG CAP.ER.24H PO SCH (09:00)
--- NOTE | 2019-09-28 12:51 | P.DS ---
Providers Date of admission: 09/26/19 19:57 Attending physician: Susanna Fowler Consults: 09/26/19 20:12 Consult Physician Routine Consulting Provider: Reyna Shah Consult Reason/Comments: CVA Do you want consulting provider notified?: Yes Primary care physician: Sunny [facility] Course: 68-year-old pleasant male came in with complaints of tingling and numbness in the right cheek area localized in the small area of the cheek along with possible weakness in the right leg upon examination patient doesn't have any weakness in both upper leg upper limbs and lower limbs patient does have knee issues and miniscule issues. Patient had a fall because his knees gave up yesterday. Patient's tingling M9 numbness in the face resolved at this time. Patient denied any other headache any other focal weakness visual problems hearing problems. Patient is complaining of some intermittent dizziness. 09/28/2019 Neurology recommended that 3 evaluation of the stroke evaluation with an MRI although patient was unable to fit an MRI because of which we're unable to obtain this test echocardiogram is within normal limits and the discussed with neurologist and he is recommending both aspirin and Plavix for 3 weeks followed by Plavix and patient is comparing of sore throat for which I will the gave him prescription for doxycycline for 5 days PHYSICAL EXAMINATION: GENERAL: The patient is alert and oriented x3, not in any acute distress. Well developed, well nourished. HEENT: Pupils are round and equally reacting to light. EOMI. No scleral icterus. No conjunctival pallor. Normocephalic, atraumatic. No pharyngeal erythema. No thyromegaly. CARDIOVASCULAR: S1 and S2 present. No murmurs, rubs, or gallops. PULMONARY: Chest is clear to auscultation, no wheezing or crackles. ABDOMEN: Soft, nontender, nondistended, normoactive bowel sounds. No palpable organomegaly. MUSCULOSKELETAL: No joint swelling or deformity. EXTREMITIES: No cyanosis, clubbing, or pedal edema. NEUROLOGICAL: Gross neurological examination did not reveal any focal deficits. SKIN: No rashes. Assessment and Plan Plan: symptoms of tingling and numbness of the right side of the face his symptomology is not consistent with stroke or TIA probably related to local nerve causes. Patient was also complaining of some weakness and tingling numbness in the right hand which is also secondary to local nerve causes there is no evidence of CVA or TIA. Patient was evaluated by neurology and they recommended the workup for TIA and a stroke please refer to neurologist dictation for further details unable to obtain MRI because of above-mentioned reasons echocardiogram within normal limits. CT angios the head and neck did not show any significant abnormality CT of the head was done as well which did not show any significant abnormality . Antiplatelet therapy as per neurology as mentioned above -gastro-esophageal reflux disease -hyperlipemia -Hypertension -Sleep apnea Patient Condition at Discharge: Serious Plan - Discharge Summary Discharge Rx Participant: No New Discharge Prescriptions: New Clopidogrel [Plavix] 75 mg PO DAILY #90 tablet Doxycycline [Vibramycin] 100 mg PO BID 3 Days #6 capsule No Action Aspirin 81 mg PO DAILY metFORMIN HCL 1,000 mg PO BID amLODIPine [Norvasc] 10 mg PO DAILY Testosterone Cypionate [Depo-Testosterone] 100 mg IM [id number] Tamsulosin [Flomax] 0.8 mg PO DAILY Pravastatin Sodium [Pravachol] 20 mg PO HS Potassium Citrate [Potassium Citrate ER] 20 meq PO BID Meloxicam 15 mg PO DAILY Levothyroxine Sodium [Synthroid] 200 mcg PO DAILY@0700 Anastrozole [Arimidex] 1 mg PO TH Allopurinol [Zyloprim] 100 mg PO DAILY Omeprazole [PriLOSEC] 20 mg PO DAILY@0700 Pyridoxine [Vitamin B-6] 25 mg PO DAILY@0700 Cholecalciferol [Vitamin D3 (25 Mcg = 1000 Iu)] 5,000 unit PO DAILY@0700 Zinc 50 mg PO DAILY Multivit-Min/FA/Lycopen/Lutein [Centrum Silver Men Tablet] 1 tab PO DAILY Krill Oil 500 mg PO DAILY Cinnamon Bark [Cinnamon] 1,000 mg PO DAILY Acetaminophen Tab [Tylenol] 650 mg PO BID PRN PRN Reason: Pain Cyanocobalamin (Vitamin B-12) [Vitamin B-12] 5,000 mcg PO DAILY Cholestyramine/Aspartame [Cholestyramine Light Packet] 1 packet PO DAILY Insulin Glargine,Hum.rec.anlog [Lantus Solostar] 58 unit SQ BID Losartan [Cozaar] 25 mg PO DAILY PRN PRN Reason: HIGH BLOOD PRESSURE Discharge Medication List Allopurinol [Zyloprim] 100 mg PO DAILY 09/27/18 [History] Anastrozole [Arimidex] 1 mg PO TH 09/27/18 [History] Aspirin 81 mg PO DAILY 09/27/18 [History] Levothyroxine Sodium [Synthroid] 200 mcg PO DAILY@0700 09/27/18 [History] Meloxicam 15 mg PO DAILY 09/27/18 [History] Potassium Citrate [Potassium Citrate ER] 20 meq PO BID 09/27/18 [History] Pravastatin Sodium [Pravachol] 20 mg PO HS 09/27/18 [History] Tamsulosin [Flomax] 0.8 mg PO DAILY 09/27/18 [History] Testosterone Cypionate [Depo-Testosterone] 100 mg IM [id number] 09/27/18 [History] amLODIPine [Norvasc] 10 mg PO DAILY 09/27/18 [History] metFORMIN HCL 1,000 mg PO BID 09/27/18 [History] Acetaminophen Tab [Tylenol] 650 mg PO BID PRN 09/26/19 [History] Cholecalciferol [Vitamin D3 (25 Mcg = 1000 Iu)] 5,000 unit PO DAILY@0700 09/26/19 [History] Cholestyramine/Aspartame [Cholestyramine Light Packet] 1 packet PO DAILY 09/26/19 [History] Cinnamon Bark [Cinnamon] 1,000 mg PO DAILY 09/26/19 [History] Cyanocobalamin (Vitamin B-12) [Vitamin B-12] 5,000 mcg PO DAILY 09/26/19 [History] Insulin Glargine,Hum.rec.anlog [Lantus Solostar] 58 unit SQ BID 09/26/19 [History] Krill Oil 500 mg PO DAILY 09/26/19 [History] Losartan [Cozaar] 25 mg PO DAILY PRN 09/26/19 [History] Multivit-Min/FA/Lycopen/Lutein [Centrum Silver Men Tablet] 1 tab PO DAILY 09/26/19 [History] Omeprazole [PriLOSEC] 20 mg PO DAILY@0700 09/26/19 [History] Pyridoxine [Vitamin B-6] 25 mg PO DAILY@0700 09/26/19 [History] Zinc 50 mg PO DAILY 09/26/19 [History] Clopidogrel [Plavix] 75 mg PO DAILY #90 tablet 09/28/19 [Rx] Doxycycline [Vibramycin] 100 mg PO BID 3 Days #6 capsule 09/28/19 [Rx] Follow up Appointment(s)/Referral(s): Sunny Mckeon DO [Primary Care Provider] - 3 Days (Please call office on Monday to schedule a follow up appointment. ) Patient Instructions/Handouts: Transient Ischemic Attack (DC), Heart Healthy Diet (DC)
[2019-10-03] MEDS ORDERED: ANASTROZOLE 1 MG TAB PO SCH (09:00)
== END 2019-09-28 12:53 | disposition home or self-care (01) ==
LOC: EC 16:54 → 3SCARD 19:57 → INTOOBSV 19:57 → 3SCARD 09-27 02:53
PROVIDERS: ADMIT Internal Medicine; ATTEND Internal Medicine
DX: E11.42 Type 2 diabetes mellitus with diabetic polyneuropathy (principal); R53.1 Weakness; R29.702 NIHSS score 2; E78.00 Pure hypercholesterolemia, unspecified; E78.5 Hyperlipidemia, unspecified; I10 Essential (primary) hypertension; K21.9 Gastro-esophageal reflux disease without esophagitis; I07.1 Rheumatic tricuspid insufficiency; G47.30 Sleep apnea, unspecified; Z99.89 Dependence on other enabling machines and devices; N40.0 Benign prostatic hyperplasia without lower urinary tract symptoms; M10.9 Gout, unspecified; E66.01 Morbid (severe) obesity due to excess calories; Z86.711 Personal history of pulmonary embolism; Z87.891 Personal history of nicotine dependence; Z88.8 Allergy status to other drugs, medicaments and biological substances; Z79.82 Long term (current) use of aspirin; Z79.890 Hormone replacement therapy; Z79.84 Long term (current) use of oral hypoglycemic drugs; Z79.4 Long term (current) use of insulin; Z79.51 Long term (current) use of inhaled steroids; Z79.899 Other long term (current) drug therapy; Z90.49 Acquired absence of other specified parts of digestive tract
CPT/HCPCS: 96360; 99285; 36415; 93005; 97161; 97165; 80053; 80061; 84443; 84484; 85025; 85610; 85730; 81001; 83036; 71046; 70496; 70450; 70498; G0378 ×2; C8929; Q9950; Q9967; 93306

== ENCOUNTER → 2022-12-08 | Outpatient (CLI) | payer MEDICARE ==
--- NOTE | 2022-12-08 12:03 | CT ---
EXAMINATION TYPE: CT abdomen pelvis wo con CT DLP: 3461.5 mGycm, Automated exposure control for dose reduction was used. DATE OF EXAM: 12/08/2022 9:17 AM COMPARISON: None CLINICAL INDICATION:Male, 72 years old with history of R31.0 GROSS HEMATURIA; hematuria TECHNIQUE: Axial CT of the abdomen and pelvis. Sagittal and coronal reformats were created on a [employer] workstation. Contrast used: None Oral contrast used: without Oral Contrast FINDINGS: LOWER CHEST: Unremarkable ABDOMEN LIVER: Diffusely hypoattenuating parenchyma. With nodular border. GALLBLADDER AND BILE DUCTS: The gallbladder appears surgically absent with cholecystectomy clips pres ent. PANCREAS: Unremarkable. SPLEEN: Unremarkable. ADRENAL GLANDS: Unremarkable. KIDNEYS AND URETERS: No evidence of hydronephrosis or renal calculus. The ureters are unremarkable. Suspected right renal cysts and bilateral peripelvic renal cysts. PELVIS BLADDER: Limited evaluation partially distended. No obvious mass. REPRODUCTIVE: Unremarkable. ABDOMEN & PELVIS STOMACH AND BOWEL: No evidence of bowel obstruction. Large stool burden throughout the colon. The elan endix is normal. PERITONEUM/RETROPERITONEUM: No evidence of pneumoperitoneum or free fluid. VASCULATURE: No evidence of aortic aneurysm. Varicosities in the anterior abdominal wall. The periumb ilical vein appears recannulated. Atherosclerosis of the arterial vasculature. MUSCULOSKELETAL: No acute osseous abnormalities, severe degeneration changes throughout the spine wit h facet joint arthropathy and osteophytes. LYMPH NODES: No gross evidence for lymphadenopathy. SOFT TISSUE/ABDOMINAL WALL: Unremarkable IMPRESSION: 1. Limited noncontrast exam. No obstructive uropathy or renal calculus visualized. No finding to def initively correlate patient's hematuria on this limited exam. Consider further evaluation with contra st-enhanced renal mass protocol or urogram protocol CT. 2. Varicosities within the anterior abdominal wall with possible recanalization of the periumbilical vein. Correlate with serum markers for hepatocellular disease possibly cirrhosis. 3. Large stool burden throughout the colon. 4. Hepatic steatosis. 5. Surgically absent gallbladder.
== END | disposition home or self-care (01) ==
LOC: RADCTMAIN 08:34
PROVIDERS: ATTEND Urology
DX: K76.0 Fatty (change of) liver, not elsewhere classified (principal); I86.4 Gastric varices; Z90.49 Acquired absence of other specified parts of digestive tract
CPT/HCPCS: 74176

== ENCOUNTER → 2023-03-01 | Outpatient (CLI) | payer MEDICARE ==
[2023-03-01 13:38] LABS: Appearance,Urine Clear (Clear); Bilirubin,Urine Negative (Negative); Blood,Urine Negative (Negative); Color,Urine Yellow; Glucose,Urine (UA) Negative (Negative); Ketones,Urine Negative (Negative); Leukocyte Esterase,Urine Negative (Negative); Nitrite,Urine Negative (Negative); PH, Urine 5.5 (5.0-8.0); Protein,Urine Trace (Negative); Specific Gravity,Urine 1.019 (1.001-1.035); Urobilinogen,Urine <2.0 mg/dL (<2.0)
[2023-03-02 02:50] LABS: ALT 47 U/L (10-49); AST 35 U/L (14-35); Albumin 4.8 d/dL (3.8-4.9); Albumin/Globulin Ratio 1.92 Ratio (1.60-3.17); Alkaline Phosphatase 80 U/L (41-126); BUN/Creat Ratio 15.18 Ratio (12.00-20.00); Blood Urea Nitrogen 16.7 mg/dL (9.0-27.0); Chloride 100 mmol/L (96-109); Globulin 2.5 d/dL (1.6-3.3); Glucose 120 mg/dL (70-110); Potassium 4.1 mmol/L (3.5-5.5); Sodium 141 mmol/L (135-145); Total Bilirubin 0.3 mg/dL (0.3-1.2); Total Protein 7.3 d/dL (6.2-8.2)
[2023-03-02 03:02] LABS: Basophils # (A) 0.07 X 10*3/uL (0.00-0.10); Basophils % (A) 0.9 %; Eosinophils # (A) 0.31 X 10*3/uL (0.04-0.35); Eosinophils % (A) 4.2 %; HCT 58.4 % (39.6-50.0); HGB 18.4 d/dL (13.0-17.0); Lymphocytes # (A) 2.03 X 10*3/uL (0.90-5.00); Lymphocytes % (A) 27.2 %; MCH 29.5 pg (27.0-32.0); MCHC 31.5 d/dL (32.0-37.0); MCV 93.6 FL (80.0-97.0); Mean Platelet Volume 9.9 FL (9.5-12.2); Monocytes # (A) 0.66 X 10*3/uL (0.20-1.00); Monocytes % (A) 8.8 %; NRBC Per 100 WBC 0 X 10*3/uL (0.00-0.01); Neutrophils # (A) 4.35 X 10*3/uL (1.80-7.70); Neutrophils % (A) 58.4 %; Platelet Count 184 X 10*3/uL (140-440); RBC 6.24 X 10*6/uL (4.40-5.60); RDW 13.6 % (11.5-14.5); WBC 7.46 X 10*3/uL (4.50-10.00)
[2023-03-02 03:03] LABS: RBC Morphology Normal (Normal)
== END | disposition home or self-care (01) ==
LOC: LABWHC1 10:55
PROVIDERS: ATTEND Urology
DX: R80.9 Proteinuria, unspecified (principal)
CPT/HCPCS: 36415; 80053; 81003; 84100; 85025

== ENCOUNTER → 2023-04-28 | Outpatient (CLI) | payer MEDICARE ==
[2023-04-28 16:13] LABS: Appearance,Urine Clear (Clear); Bilirubin,Urine Negative (Negative); Blood,Urine Negative (Negative); Color,Urine Yellow (Yellow); Ketones,Urine Trace (Negative); Nitrite,Urine Negative (Negative); PH, Urine 5.5; Specific Gravity,Urine 1.027 (1.001-1.030); Urobilinogen,Urine 0.2 E.U./DL
[2023-04-28 16:15] LABS: Bacteria,Urine None Seen (None Seen)
[2023-04-28 16:47] LABS: Basophils # (A) 0.05 X 10*3/uL (0.00-0.10); Basophils % (A) 0.7 %; Eosinophils # (A) 0.35 X 10*3/uL (0.04-0.35); Eosinophils % (A) 4.8 %; HGB 17.7 d/dL (13.0-17.0); Lymphocytes # (A) 1.86 X 10*3/uL (0.90-5.00); Lymphocytes % (A) 25.4 %; MCH 28.7 pg (27.0-32.0); MCHC 31.1 d/dL (32.0-37.0); MCV 92.5 FL (80.0-97.0); Mean Platelet Volume 10.5 FL (9.5-12.2); Monocytes % (A) 9.5 %; NRBC Per 100 WBC 0 X 10*3/uL (0.00-0.01); Neutrophils # (A) 4.34 X 10*3/uL (1.80-7.70); Neutrophils % (A) 59.2 %; Platelet Count 175 X 10*3/uL (140-440); RBC 6.16 X 10*6/uL (4.40-5.60); RDW 13.8 % (11.5-14.5); WBC 7.33 X 10*3/uL (4.50-10.00)
[2023-04-28 17:04] LABS: % Iron Saturation 18.61 (15.00-50.00); Ferritin 34.2 ng/mL (22.0-322.0); Iron 86 UG/DL (65-175); Phosphorus 3.1 mg/dL (2.4-5.1); Total Iron Binding Capacity 462 UG/DL (228-460); Uric Acid 5.3 mg/dL (3.7-8.7)
[2023-04-28 17:11] LABS: Albumin 4.4 d/dL (3.8-4.9); BUN/Creat Ratio 14.58 Ratio (12.00-20.00); Blood Urea Nitrogen 17.5 mg/dL (9.0-27.0); Calcium 9.6 mg/dL (8.7-10.3); Carbon Dioxide 25.4 mmol/L (21.6-31.8); Chloride 103 mmol/L (96-109); Glucose 122 mg/dL (70-110); Potassium 5.1 mmol/L (3.5-5.5); Sodium 141 mmol/L (135-145)
== END | disposition home or self-care (01) ==
LOC: LABWHC1 09:47
DX: E55.9 Vitamin D deficiency, unspecified (principal); M10.9 Gout, unspecified; N39.0 Urinary tract infection, site not specified; D63.1 Anemia in chronic kidney disease; N18.2 Chronic kidney disease, stage 2 (mild); N25.81 Secondary hyperparathyroidism of renal origin; R80.9 Proteinuria, unspecified
CPT/HCPCS: 36415; 80048; 81001; 82040; 82043; 82306; 82570; 82728; 83540; 83550; 83735; 83970; 84100; 84550; 85025; 86334; 86335

== ENCOUNTER → 2023-08-25 | Outpatient (CLI) | payer MEDICARE | END | disposition home or self-care (01) | LOC: LABWHC1 11:01 | PROVIDERS: ATTEND Nurse Practitioner Family | DX: R80.9 Proteinuria, unspecified (principal) | CPT/HCPCS: 36415; 82040; 86162 ==

== ENCOUNTER → 2024-02-22 | Outpatient (CLI) | payer MEDICARE ==
--- NOTE | 2024-04-08 13:56 | XR ---
Kehinde Burch : 1950 EXAMINATION TYPE: XR chest 2V DATE OF EXAM: 02/22/2024 COMPARISON: No priors available during downtime HISTORY: 73-year-old male I26.99, blood clots TECHNIQUE: Frontal and lateral views FINDINGS: Heart upper limits of normal in size. Mild interstitial prominence may be on a technical basis. No co nsolidation or pleural effusion. [facility] noted in the thoracic spine on the lateral view. IMPRESSION: Interstitial prominence may be on a technical basis. Correlate to exclude mild pulmonary vascular con gestion. Otherwise, no acute process seen.
--- NOTE | 2024-04-16 13:15 | NM ---
EXAMINATION TYPE: NM pul vent and perfuse DATE OF EXAM: 02/22/2024, image is presented 02/26/2024 for final interpretation CLINICAL INDICATION: Difficulty breathing wheezing history of prior PE COMPARISON: Chest x-ray same date 02/22/24. TECHNIQUE: Utilizing inhalation of 64.3 mCi Tc 99m DTPA aerosol and intravenous injection of 5 mCi o f Tc 99m MAA, ventilation and perfusion images are acquired post injection in multiple projections. FINDINGS: No moderate or large mismatched defects evident. No triple matched defects are evident. There may be a large left upper lobe defect which is matched between ventilation and perfusion. IMPRESSION: Low probability for pulmonary embolism based on PIOPED 2 criteria.
== END | disposition home or self-care (01) ==
LOC: RADXRMAIN 14:27
PROVIDERS: ATTEND Internal Medicine
DX: I26.99 Other pulmonary embolism without acute cor pulmonale (principal)
CPT/HCPCS: 71046; 78582

== ENCOUNTER → 2024-04-27 | Outpatient (CLI) | payer MEDICARE | END | disposition home or self-care (01) | LOC: RADMRIMAIN 09:32 | PROVIDERS: ATTEND Radiology Radiation Oncology | DX: C61 Malignant neoplasm of prostate (principal) ==

== ENCOUNTER 2024-05-09 10:14 | Day surgery (SDC) | payer MEDICARE ==
--- NOTE | 2024-05-06 08:03 | P.GSHP ---
History of Present Illness H&P Date: 05/06/24 Chief Complaint: Prostate cancer Patient is a 73-year-old white male with recently diagnosed [place] 7 adenocarcinoma. He has a history of hypogonadism. Alternative treatment options were reviewed, and he has elected to be treated with IMRT, without androgen deprivation therapy. TRT is being held. - Cardiovascular Cardiovascular: Reports high blood pressure - Genitourinary (Male) Genitourinary: Denies dysuria, Denies hematuria Past Medical History Past Medical History: Cancer, Diabetes Mellitus, GERD/Reflux, Hyperlipidemia, Hypertension, Myocardial Infarction ([place]), Renal Disease, Sleep Apnea/CPAP/BIPAP, Thyroid Disorder Additional Past Medical History / Comment(s): BPH, Gouty Arturitis, testicular disorder, prostate cancer, Mi on stress test,stage 2 kidney disease nueropathy, pvc's Last Myocardial Infarction Date:: unk History of Any Multi-Drug Resistant Organisms: None Reported Past Surgical History: Cholecystectomy, Orthopedic Surgery Additional Past Surgical History / Comment(s): pilonidial cyst, colonoscopy, rt meniscus ,kidney stones, skin cancer removed, tooth extractions at oral surgeon. Past Anesthesia/Blood Transfusion Reactions: No Reported Reaction Smoking Status: Former smoker - Past Family History Father Family Medical History: Cancer Additional Family Medical History / Comment(s): prostate Medications and Allergies Home Medications Medication Instructions Recorded Confirmed Type Aspirin 81 mg PO DAILY 09/27/18 05/03/24 History Levothyroxine Sodium [Synthroid] 200 mcg PO DAILY@0700 09/27/18 05/03/24 History Meloxicam 15 mg PO DAILY 09/27/18 05/03/24 History Pravastatin Sodium [Pravachol] 20 mg PO HS 09/27/18 05/03/24 History allopurinoL [Zyloprim] 300 mg PO DAILY 09/27/18 05/03/24 History amLODIPine [Norvasc] 10 mg PO DAILY 09/27/18 05/03/24 History metFORMIN HCL [Glucophage] 1,000 mg PO BID 09/27/18 05/03/24 History Cholecalciferol [Vitamin D3 (25 5,000 unit PO DAILY@0700 09/26/19 05/03/24 History Mcg = 1000 Iu)] Cyanocobalamin (Vitamin B-12) 5,000 mcg PO DAILY 09/26/19 05/03/24 History [Vitamin B-12] Insulin Glargine,Hum.rec.anlog 34 unit SQ BID 09/26/19 05/03/24 History [Lantus Solostar] Losartan [Cozaar] 100 mg PO DAILY 09/26/19 05/03/24 History Mv-Min/Folic/K1/Lycopen/Lutein 1 tab PO DAILY 09/26/19 05/03/24 History [Centrum Silver Men Tablet] Capsaicin Cream [Trixaicin Cream] 1 applic TOPICAL TID PRN 05/03/24 05/03/24 History Cbd Oil (Unk) 1 dose TOPICAL DAILY PRN 05/03/24 05/03/24 History Ferrous Sulfate [Iron] 325 mg PO Q48H 05/03/24 05/03/24 History HYDROcodone/APAP 5-325MG [[place] 1 tab PO Q6HR PRN 05/03/24 05/03/24 History 5-325] Lidocaine Cream (Unk) 1 applic TOPICAL DAILY PRN 05/03/24 05/03/24 History Loratadine [Claritin] 10 mg PO DAILY 05/03/24 05/03/24 History Magnesium 250 mg PO DAILY 05/03/24 05/03/24 History Melatonin 3 mg PO HS PRN 05/03/24 05/03/24 History Metoprolol Succinate (ER) [Toprol 100 mg PO DAILY 05/03/24 05/03/24 History Xl] Omeprazole [PriLOSEC] 20 mg PO AC-BID 05/03/24 05/03/24 History Spironolactone [Aldactone] 50 mg PO DAILY 05/03/24 05/03/24 History Vit C(Unk) 1 tab PO DAILY 05/03/24 05/03/24 History hydroCHLOROthiazide [Hydrodiuril] 50 mg PO DAILY 05/03/24 05/03/24 History tadalafiL [Tadalafil] 5 mg PO DAILY 05/03/24 05/03/24 History Allergies Allergy/AdvReac Type Severity Reaction Status Date / Time milk AdvReac Diarrhea Verified 05/03/24 14:27 sitagliptin [From Juluvia] AdvReac Unknown Verified 05/03/24 13:32 tramadol AdvReac Unknown Verified 05/03/24 13:32 Surgical - Exam - General well developed, well nourished, no distress - Respiratory normal respiratory effort - Abdomen Abdomen: soft, non tender, no guarding, no rigid, no rebound - Genitourinary normal penis with no external lesions, testicles non-tender - Rectum Rectum: normal sphincter tone, no masses, other (Nodule at left prostatic base) - Psychiatric oriented to time, oriented to person, oriented to place, speech is normal, memory intact Assessment and Plan (1) Malignant neoplasm of prostate Status: Acute Code(s): C61 - MALIGNANT NEOPLASM OF PROSTATE SNOMED Code(s): 689930054 Plan: The SpaceOar implant has been reviewed in detail with the patient. He understands that the rationale for this is to create separation between the prostate and rectum, thus reducing the risk of radiation proctitis. The material begins to breakdown 12-13 weeks following implant, and is reabsorbed by the body. Risks include anesthesia, bleeding, infection, and perineal discomfort. He understands that if the rectal wall is perforated the procedure will need to be aborted.
[2024-05-09] MEDS ORDERED: LIDOCAINE 1% (10MG/ML) FOR IV START INTRADERMA PRN (10:42)
[2024-05-09] MEDS ORDERED: HYDROmorphone 0.5 MG/0.5 ML SYRINGE IVP PRN (10:42)
[2024-05-09] MEDS: IV FLUID CONTINUATION 1,000 ML IV ONE (10:59)
[2024-05-09 11:33] LABS: Glucose,Whole Blood 127 mg/dL (70-110)
[2024-05-09] MEDS: ONDANSETRON 4 MG/2 ML VIAL IVP ONE (11:35)
[2024-05-09 11:46] VITALS: TEMP 97.1
[2024-05-09] MEDS: LACTATED RINGERS 1,000 ML IV SCH (11:47)
[2024-05-09] MEDS ORDERED: GLYCOPYRROLATE 0.2 MG/ML 2 ML VIAL ONE (12:43)
[2024-05-09] MEDS ORDERED: PROPOFOL 10 MG/ML 20 ML VIAL IV ONE (12:43)
[2024-05-09] MEDS ORDERED: MIDAZOLAM 2 MG/2 ML VIAL ONE (12:43)
[2024-05-09] MEDS ORDERED: fentaNYL (PF) 50 MCG/ML 2 ML AMP ONE (12:43)
[2024-05-09] MEDS ORDERED: KETAMINE HCL IN 0.9 % NACL 50 MG/5 ML SYRINGE ONE (12:43)
[2024-05-09] MEDS: ceFAZolin 3 GM in SODIUM CHLORIDE 0.9% 100 ML IVPB PRN (12:45)
[2024-05-09 12:46] LABS: African American GFR (CKD) >90 (>60 ml/min/1.73 sqM); Anion Gap 11 mmol/L; Blood Urea Nitrogen 25 mg/dL (9-20); Calcium 9.5 mg/dL (8.4-10.2); Carbon Dioxide 21 mmol/L (22-30); Chloride 107 mmol/L (98-107); Glucose 123 mg/dL (74-99); Non-African American GFR(CKD) 79 (>60 ml/min/1.73 sqM); Potassium 4.7 mmol/L (3.5-5.1); Sodium 139 mmol/L (137-145)
[2024-05-09] MEDS: LIDOCAINE 2% INJ 20 MG/ML SQ ONE ×2 (12:58→13:00)
--- NOTE | 2024-05-09 13:12 | P.OP ---
Date of Procedure: 05/09/24 Preoperative Diagnosis: Adenocarcinoma of the prostate Postoperative Diagnosis: Same Procedure(s) Performed: SpaceOAR implant Anesthesia: MAC Surgeon: Joes Urena Estimated Blood Loss (ml): 10 IV fluids (ml): 300 Pathology: none sent Condition: stable Disposition: PACU Indications for Procedure: Patient is a 73-year-old white male with recently diagnosed [place] 7 adenocarcinoma. He has a history of hypogonadism. Alternative treatment options were reviewed, and he has elected to be treated with IMRT, without androgen deprivation therapy. TRT is being held. Both his serum testosterone and PSA levels have declined, as expected. Operative Findings: Adequate separation achieved by SpaceOAR implant. Description of Procedure: The patient was taken to the operating room and placed in the dorsolithotomy position, with his legs supported in Dillon stirrups. The external genitalia was prepped and draped sterilely. The [employer] transrectal ultrasound probe was placed intrarectally. The prostate was imaged. The probe was then placed within the stabilizing stand. A spinal needle was advanced under ultrasonic guidance to the level of the urogenital diaphragm, and lidocaine was used to infiltrate the tissues as the needle was withdrawn. Next, the SpaceOAR needle was passed through the midline of the perineum, 1-2 cm anterior to the anal opening. The needle was slowly advanced under ultrasonic guidance until the needle tip was located within the fat plane between the prostate and rectum, at the level of the mid prostate gland. The needle was confirmed to be midline on the axial imaging. A small amount of normal saline was injected for hydrodissection. Next, the SpaceOAR components were mixed and loaded into the Y connector per protocol. The Y connector was then connected to the needle, and the components were injected slowly over a course of approximately 12 seconds. A total of 10 ml was injected. Significant distance was created between the prostate and rectum, as desired. It should be noted that the rectal wall appeared somewhat redundant, but at no point was there any concern of rectal perforation. The needle was withdrawn, as well as the transrectal ultrasound probe, and the procedure was terminated. The patient tolerated the procedure well and was taken to the recovery room in stable condition.
[2024-05-09 14:09] VITALS: BP 132/72; PULSE 59; RESP 20
== END 2024-05-09 14:10 | disposition home or self-care (01) ==
LOC: OR 10:14
PROVIDERS: ATTEND Urology
CPT/HCPCS: 80048

== ENCOUNTER 2024-06-21 10:32 | Observation (INO) | payer MEDICARE ==
--- NOTE | 2024-06-21 11:05 | ED ---
General Adult HPI - General Chief complaint: Neuro Symptoms/Deficit Stated complaint: Dizziness Time Seen by Provider: 06/21/24 10:45 Source: patient, RN notes reviewed Mode of arrival: wheelchair Limitations: no limitations - History of Present Illness Initial comments: Patient is a 74-year-old male present to the emergency department with concerns for balance and visual problems. Onset of symptoms was around 24 hours ago. Patient did have radiation treatment to his prostate for prostate cancer prior to this. Patient states cancer has not moved past his prostate. Patient states he has had some blurred vision and double vision. This improves with closing his left eye however it does not return to normal. Patient is also feeling off balance and has been stumbling at times. No speech problems. No confusion. No extremity weakness. - Related Data Home Medications Medication Instructions Recorded Confirmed Aspirin 81 mg PO DAILY 09/27/18 06/21/24 Meloxicam 15 mg PO DAILY 09/27/18 06/21/24 Pravastatin Sodium [Pravachol] 20 mg PO DAILY 09/27/18 06/21/24 allopurinoL [Zyloprim] 300 mg PO DAILY 09/27/18 06/21/24 amLODIPine [Norvasc] 10 mg PO DAILY 09/27/18 06/21/24 metFORMIN HCL [Glucophage] 1,000 mg PO BID-W/MEALS 09/27/18 06/21/24 Insulin Glargine,Hum.rec.anlog 34 unit SQ BID 09/26/19 06/21/24 [Lantus Solostar] Losartan [Cozaar] 100 mg PO DAILY 09/26/19 06/21/24 Mv-Min/Folic/K1/Lycopen/Lutein 1 tab PO DAILY 09/26/19 06/21/24 [Centrum Silver Men Tablet] Capsaicin Cream [Trixaicin Cream] 1 applic TOPICAL TID PRN 05/03/24 06/21/24 Cbd Oil (Unk) 1 dose TOPICAL BID PRN 05/03/24 06/21/24 Ferrous Sulfate [Iron] 325 mg PO Q48H 05/03/24 06/21/24 HYDROcodone/APAP 5-325MG [[place] 1 tab PO QID 05/03/24 06/21/24 5-325] Lidocaine Cream (Unk) 1 applic TOPICAL TID PRN 05/03/24 06/21/24 Loratadine [Claritin] 10 mg PO DAILY PRN 05/03/24 06/21/24 Melatonin 3 mg PO HS PRN 05/03/24 06/21/24 Metoprolol Succinate (ER) [Toprol 100 mg PO DAILY 05/03/24 06/21/24 Xl] Spironolactone [Aldactone] 50 mg PO DAILY 05/03/24 06/21/24 hydroCHLOROthiazide [Hydrodiuril] 50 mg PO DAILY 05/03/24 06/21/24 tadalafiL [Tadalafil] 5 mg PO DAILY 05/03/24 06/21/24 Cholecalciferol (Vitamin D3) 50 mcg PO DAILY 06/21/24 06/21/24 [Vitamin D3 (50 Mcg = 2000 Iu)] Colchicine 0.6 mg PO DAILY PRN 06/21/24 06/21/24 Cyanocobalamin (Vitamin B-12) 2,500 mcg PO DAILY 06/21/24 06/21/24 [Vitamin B-12] Levothyroxine Sodium [Synthroid] 200 mcg PO DAILY 06/21/24 06/21/24 Magnesium Oxide [Mag-Ox] 400 mg PO HS 06/21/24 06/21/24 Pregabalin [Lyrica] 75 mg PO TID 06/21/24 06/21/24 Sertraline [Zoloft] 50 mg PO DAILY 06/21/24 06/21/24 Vitamin C With Iron (Unknown 1 tab PO Q48H 06/21/24 06/21/24 Strength) Zinc Gluconate [Zinc] 50 mg PO Q48H 06/21/24 06/21/24 tadalafiL 20 mg PO DAILY PRN 06/21/24 06/21/24 Allergies Allergy/AdvReac Type Severity Reaction Status Date / Time milk AdvReac Diarrhea Verified 06/21/24 10:38 sitagliptin [From Januvia] AdvReac Unknown Verified 06/21/24 10:38 tramadol AdvReac Unknown Verified 06/21/24 10:38 Review of Systems ROS Statement: Those systems with pertinent positive or pertinent negative responses have been documented in the HPI. ROS Other: All systems not noted in ROS Statement are negative. Constitutional: Denies: fever Eyes: Reports: as per HPI, vision change. Denies: eye pain ENT: Denies: ear pain Respiratory: Denies: cough Cardiovascular: Denies: chest pain Endocrine: Denies: fatigue Gastrointestinal: Denies: abdominal pain Neurological: Reports: as per HPI. Denies: headache, weakness, confusion Past Medical History Past Medical History: Cancer, GERD/Reflux, Hyperlipidemia, Hypertension, Prostate Disorder, Sleep Apnea/CPAP/BIPAP Additional Past Medical History / Comment(s): BPH, Gouty Arturitis, testicular disorder, History of Any Multi-Drug Resistant Organisms: None Reported Past Surgical History: Cholecystectomy Past Anesthesia/Blood Transfusion Reactions: No Reported Reaction Past Psychological History: No Psychological Hx Reported Smoking Status: Former smoker Past Alcohol Use History: None Reported Past Drug Use History: None Reported General Exam Limitations: no limitations General appearance: alert, in no apparent distress Head exam: Present: atraumatic, normocephalic Eye exam: Present: normal appearance, PERRL, EOMI ENT exam: Present: normal oropharynx Neck exam: Present: normal inspection Respiratory exam: Present: normal lung sounds bilaterally Cardiovascular Exam: Present: regular rate, normal rhythm GI/Abdominal exam: Present: soft. Absent: tenderness Extremities exam: Present: normal inspection Neurological exam: Present: alert, CN II-XII intact. Absent: motor sensory deficit Expanded Neurological exam: Present: protecting the airway Speech: Present: fluid speech Cranial nerves: EOM's Intact: Normal, Facial Sensation: Normal Cerebellar function: Finger to Nose: Normal Sensory exam: Upper Extremity Light Touch: Normal, Lower Extremity Light Touch: Normal Motor strength exam: RUE: 5, LUE: 5, RLE: 5, LLE: 5 Eye Response: (4) open spontaneously Motor Response: (6) obeys commands Verbal Response: (5) oriented Psychiatric exam: Present: normal affect, normal mood Skin exam: Present: normal color Course Vital Signs 06/21/24 10:38 Temperature 97.6 F Pulse Rate 56 L Respiratory 20 Rate Blood Pressure 152/65 O2 Sat by Pulse 99 Oximetry EKG Findings - EKG Results: EKG: interpreted by ERMD, sinus rhythm, normal axis, normal QRS, normal ST/T EKG shows: bradycardia Medical Decision Making - Medical Decision Making Was pt. sent in by a medical professional or institution (, PA, [employer] 9 [employer]RU [employer] VISITING TEACHER, urgent care, hospital, or long-term...) When possible be specific @ -No Did you speak to anyone other than the patient for history (EMS, parent, family, police, friend...)? What history was obtained from this source @ - is present and helps provide history and helps clarify onset Did you review nursing and triage notes (agree or disagree)? Why? @ -I reviewed and agree with nursing and triage notes Were old charts reviewed (outside hosp., previous admission, EMS record, old EKG, old radiological studies, urgent care reports/EKG's, long-term records)? Report findings @ -No old charts were reviewed Differential Diagnosis (chest pain, altered mental status, abdominal pain women, abdominal pain men, vaginal bleeding, weakness, fever, dyspnea, syncope, headache, dizziness, GI bleed, back pain, seizure, CVA, palpatations, mental health, musculoskeletal)? @ -Differential Weakness: Hypoglycemia, shock, sepsis, hyponatremia, anemia, infection, DE, ETOH, adverse medicine reaction, overdose, stroke, this is not meant to be an all-inclusive list. EKG interpreted by me (3pts min.). @ -As above X-rays interpreted by me (1pt min.). @ -Chest x-ray shows some cardiomegaly CT interpreted by me (1pt min.). @ -CT scan of the brain does not reveal acute abnormality U/S interpreted by me (1pt. min.). @ -None done What testing was considered but not performed or refused? (CT, X-rays, U/S, labs)? Why? @ -None What meds were considered but not given or refused? Why? @ -None Did you discuss the management of the patient with other professionals (professionals i.e. , PA, [employer] VISITING TEACHER, lab, RT, psych nurse, protective services social worker, feed crusher operator, teacher, protective officer, nurse case manager)? Give summary @ -Case was discussed with practitioner Jose G who will admit covering Dr. [place] me Was smoking cessation discussed for >3mins.? @ -No Was critical care preformed (if so, how long)? @ -No Were there social determinants of health that impacted care today? How? (Homelessness, low income, unemployed, alcoholism, drug addiction, transportat ion, low edu. Level, literacy, decrease access to med. care, retirement, rehab)? @ -No Was there de-escalation of care discussed even if they declined (Discuss DNR or withdrawal of care, Hospice)? DNR status @ -No What co-morbidities impacted this encounter? (DM, HTN, Smoking, COPD, CAD, Cancer, CVA, ARF, Chemo, Hep., AIDS, mental health diagnosis, sleep apnea, morbid obesity)? @ -History of prostate cancer, on radiation Was patient admitted / discharged? Hospital course, mention meds given and rou te, prescriptions, significant lab abnormalities, going to OR and other pertinent info. @ -Patient presents with 24 hours of blurry vision and some double vision with associated off balance. CT and CTA unremarkable. Patient will be admitted for neurology consult, admission orders written. Undiagnosed new problem with uncertain prognosis? @ -No Drug Therapy requiring intensive monitoring for toxicity (Heparin, Nitro, Insulin, Cardizem)? @ -No Were any procedures done? @ -No Diagnosis/symptom? @ -Off balance Acute, or Chronic, or Acute on Chronic? @ -Acute Uncomplicated (without systemic symptoms) or Complicated (systemic symptoms)? @ -Default Side effects of treatment? @ -No Exacerbation, Progression, or Severe Exacerbation? @ -No Poses a threat to life or bodily function? How? (Chest pain, [place], DE, pneumonia, PE, COPD, DKA, ARF, appy, cholecystitis, CVA, Diverticulitis, Homicidal, Suicidal, threat to staff... and all critical care pts) @ -Threat of neurological function - Lab Data Result diagrams: 06/21/24 11:08 06/21/24 11:08 Lab Results 06/21/24 06/21/24 06/21/24 Range/Units 11:08 11:08 11:08 WBC 5.8 (3.8-10.6) k/uL RBC 4.90 (4.30-5.90) m/uL Hgb 14.9 (13.0-17.5) gm/dL Hct 45.6 (39.0-53.0) % MCV 93.0 (80.0-100.0) fL MCH 30.3 (25.0-35.0) pg MCHC 32.6 (31.0-37.0) g/dL RDW 14.4 (11.5-15.5) % Plt Count 128 L (150-450) k/uL MPV 6.9 Neutrophils % 65 % Lymphocytes % 21 % Monocytes % 7 % Eosinophils % 5 % Basophils % 1 % Neutrophils # 3.8 (1.3-7.7) k/uL Lymphocytes # 1.2 (1.0-4.8) k/uL Monocytes # 0.4 (0-1.0) k/uL Eosinophils # 0.3 (0-0.7) k/uL Basophils # 0.0 (0-0.2) k/uL PT 10.3 (10.0-12.5) sec INR 0.9 (<1.2) APTT 24.2 (22.0-30.0) sec Sodium 137 (137-145) mmol/L Potassium 4.7 (3.5-5.1) mmol/L Chloride 102 (98-107) mmol/L Carbon Dioxide 25 (22-30) mmol/L Anion Gap 10 mmol/L BUN 25 H (9-20) mg/dL Creatinine 0.98 (0.66-1.25) mg/dL Est GFR (CKD-EPI)AfAm 87 (>60 ml/min/1.73 sqM) Est GFR (CKD-EPI)NonAf 75 (>60 ml/min/1.73 sqM) Glucose 104 H (74-99) mg/dL Calcium 9.6 (8.4-10.2) mg/dL Total Bilirubin 0.7 (0.2-1.3) mg/dL AST 37 (17-59) U/L ALT 30 (4-49) U/L Alkaline Phosphatase 51 (38-126) U/L Creatine Kinase 120 (55-170) U/L Total Protein 7.4 (6.3-8.2) g/dL Albumin 4.5 (3.5-5.0) g/dL Disposition Clinical Impression: Balance problem Disposition: ADMITTED IP TO THIS HOSP Is patient prescribed a controlled substance at d/c from ED?: No Referrals: Sunny Mckeon DO [Primary Care Provider] - 1-2 days Time of Disposition: 14:12
[2024-06-21 11:39] LABS: Basophils % (A) 1 %; Eosinophils # (A) 0.3 k/uL (0-0.7); Eosinophils % (A) 5 %; HCT 45.6 % (39.0-53.0); HGB 14.9 gm/dL (13.0-17.5); Lymphocytes # (A) 1.2 k/uL (1.0-4.8); Lymphocytes % (A) 21 %; MCH 30.3 pg (25.0-35.0); MCHC 32.6 g/dL (31.0-37.0); Mean Platelet Volume 6.9; Monocytes # (A) 0.4 k/uL (0-1.0); Monocytes % (A) 7 %; Neutrophils # (A) 3.8 k/uL (1.3-7.7); Neutrophils % (A) 65 %; Platelet Count 128 k/uL (150-450); RDW 14.4 % (11.5-15.5); WBC 5.8 k/uL (3.8-10.6)
[2024-06-21 11:44] LABS: ALT 30 U/L (4-49); African American GFR (CKD) 87 (>60 ml/min/1.73 sqM); Albumin 4.5 g/dL (3.5-5.0); Anion Gap 10 mmol/L; Blood Urea Nitrogen 25 mg/dL (9-20); Calcium 9.6 mg/dL (8.4-10.2); Carbon Dioxide 25 mmol/L (22-30); Chloride 102 mmol/L (98-107); Creatine Kinase 120 U/L (55-170); Glucose 104 mg/dL (74-99); INR 0.9 (<1.2); Non-African American GFR(CKD) 75 (>60 ml/min/1.73 sqM); Partial Thromboplastin Time 24.2 sec (22.0-30.0); Prothrombin Time 10.3 sec (10.0-12.5); Sodium 137 mmol/L (137-145); Total Bilirubin 0.7 mg/dL (0.2-1.3); Total Protein 7.4 g/dL (6.3-8.2)
[2024-06-21 11:45] LABS: AST 37 U/L (17-59); Alkaline Phosphatase 51 U/L (38-126); Potassium 4.7 mmol/L (3.5-5.1)
--- NOTE | 2024-06-21 12:30 | CT ---
EXAMINATION TYPE: CT brain wo con DATE OF EXAM: 06/21/2024 COMPARISON: 09/26/2019 CLINICAL INDICATION: Male, 74 years old with history of Neuro deficit, acute, stroke suspected; PHH, Dizziness, prostate Ca. CT DLP: 2464.8 mGycm Automated exposure control for dose reduction was used. Findings: The ventricles, basal cisterns and sulci over the convexities are mildly to moderately enlarged consi stent with mild to moderate atrophy consistent with the patient's age. There is no mass effect or alba ft of midline structures. No abnormal density is seen throughout the brain parenchyma and there is no acute intra or extra-axia l hemorrhage. The posterior fossa including the brainstem, fourth ventricle and cerebellar pontine angles appear no rmal. Intraorbital contents appear normal and symmetric. Visualized paranasal sinuses and mastoid air cells are well aerated. The calvarium is intact. IMPRESSION: 1 no acute bleed or mass effect. 2. Mild to moderate age-appropriate atrophy. [facility], , 06/21/2024 12:28 PM
--- NOTE | 2024-06-21 12:35 | XR ---
EXAMINATION TYPE: XR chest 2V DATE OF EXAM: 06/21/2024 12:18 PM COMPARISON: Chest radiographs from 02/22/2024 CLINICAL INDICATION: Male, 74 years old with history of altered mental status; TECHNIQUE: XR chest 2V Frontal and lateral views of the chest. FINDINGS: Lungs/Pleura: There is no evidence of pleural effusion, focal consolidation, or pneumothorax. Pulmonary vascularity: Unremarkable. Heart/mediastinum: Cardiomediastinal silhouette is enlarged and stable. Musculoskeletal: No acute osseous pathology. IMPRESSION: No acute cardiopulmonary disease/process. [facility], , 06/21/2024 12:32 PM
--- NOTE | 2024-06-21 12:43 | CT ---
EXAMINATION TYPE: CT angio head neck CT DLP: 2464.8 mGycm, Automated exposure control for dose reduction was used. DATE OF EXAM: 06/21/2024 12:37 PM COMPARISON: CTA head and neck 09/26/2019, CT brain 06/21/2024, 09/26/2019. CLINICAL INDICATION:Male, 74 years old with history of Neuro deficit, acute, stroke suspected; PHH, Ron izziness, current radiation/chemo TECHNIQUE: Axially acquired helical CT angiogram of the head and neck was obtained with contrast util izing 75 cc of Isovue-370 administered intravenously. Axial images are supplemented with 3D reconstru ctions which were post-processed at an independent workstation. NASCET criteria used. FINDINGS: CTA HEAD: No evidence of acute intracranial hemorrhage, mass effect, or midline shift. The ventricles, sulci, a nd cisterns are unremarkable. The visualized portions of the internal carotid arteries, middle cerebral arteries, anterior cerebral arteries, and posterior cerebral arteries are patent. The basilar and vertebral arteries are patent. Small caliber to the basilar artery. CTA NECK: Right Carotid System: The common carotid artery and external carotid artery are patent. Mild atherosclerotic calcification at the carotid bifurcation and proximal internal carotid artery. The carotid bifurcation demonstrates no evidence of hemodynamically significant stenosis. The remaining portions of the internal carotid artery demonstrate normal size without significant narrowing. Left Carotid System: The common carotid artery and external carotid artery are patent. The left common carotid artery is t ortuous but patent. The carotid bifurcation demonstrates no evidence of hemodynamically significant s tenosis. The remaining portions of the internal carotid artery demonstrate normal size without signif icant narrowing. Vertebral arteries are patent without evidence hemodynamically significant stenosis. There is a three-vessel aortic arch. The origins of the great vessels are patent. No evidence of hemo dynamically significant stenosis. Bilateral shoulder arthropathy. Multilevel degenerative disc disease. 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 IMPRESSION: 1. No evidence of dissection of the cervical internal carotid arteries or vertebral arteries or any e vidence of significant stenosis at the carotid bifurcations. 2. No evidence of high-grade stenosis or intracranial aneurysm. [facility], , 06/21/2024 12:41 PM
[2024-06-21] MEDS ORDERED: ACETAMINOPHEN TAB 325 MG TAB PO PRN (13:33)
[2024-06-21] MEDS ORDERED: NALOXONE 0.4 MG/ML 1 ML VIAL IV PRN (13:33)
[2024-06-21] MEDS ORDERED: ONDANSETRON 4 MG/2 ML VIAL IVP PRN (13:33)
[2024-06-21] MEDS ORDERED: MELATONIN 3 MG TABLET PO PRN (14:33)
[2024-06-21] MEDS ORDERED: LORATADINE 10 MG TAB PO PRN (14:33)
[2024-06-21] MEDS ORDERED: NON FORMULARY DRUG (Tadalafil [Tadalafil] 20 MG Tablet) PO PRN (14:33)
[2024-06-21] MEDS ORDERED: DEXTROSE 50% SYRINGE 50 ML IVP PRN ×2 (15:46)
--- NOTE | 2024-06-21 15:53 | P.HPIM ---
History of Present Illness H&P Date: 06/21/24 Chief Complaint: Blurry vision Kehinde is a 74-year-old male with past medical history of type 2 diabetes on insulin, recent diagnosis of prostate cancer and hypotestosterone The patient presents to hospital as he reports that he was in his usual state of health up until June 20. He reports at that time he was started having blurry vision and felt dizzy. He reports that he was checked his blood pressure and his systolic blood pressure notably in the 170 range with a diastolic in the 70 range. He reports his blood sugar was in the 130 range. He reports that he has been going to radiation therapy daily for the past 14 days given his prostate cancer. He reports that he had discussed the symptoms with his who had brought him to the ER for further evaluation. When he presented to hospital he was hemodynamically stable afebrile was 99% room air. CBC showed white blood cell count is 5.8, hemoglobin was 14.9, platelet count was 128. CMP has showed no significant abnormalities. CT brain had revealed no acute abnormalities. CTA head and neck revealed no evidence of dissection or any intracranial or carotid stenosis. He was then placed in observation. Review of Systems Constitutional: Reports as per HPI Past Medical History Past Medical History: Cancer, GERD/Reflux, Hyperlipidemia, Hypertension, Prostate Disorder, Sleep Apnea/CPAP/BIPAP Additional Past Medical History / Comment(s): BPH, Gouty Arturitis, testicular disorder, History of Any Multi-Drug Resistant Organisms: None Reported Past Surgical History: Cholecystectomy Past Anesthesia/Blood Transfusion Reactions: No Reported Reaction Past Psychological History: No Psychological Hx Reported Smoking Status: Former smoker Past Alcohol Use History: None Reported Past Drug Use History: None Reported Medications and Allergies Home Medications Medication Instructions Recorded Confirmed Type Aspirin 81 mg PO DAILY 09/27/18 06/21/24 History Meloxicam 15 mg PO DAILY 09/27/18 06/21/24 History Pravastatin Sodium [Pravachol] 20 mg PO DAILY 09/27/18 06/21/24 History allopurinoL [Zyloprim] 300 mg PO DAILY 09/27/18 06/21/24 History amLODIPine [Norvasc] 10 mg PO DAILY 09/27/18 06/21/24 History metFORMIN HCL [Glucophage] 1,000 mg PO BID-W/MEALS 09/27/18 06/21/24 History Insulin Glargine,Hum.rec.anlog 34 unit SQ BID 09/26/19 06/21/24 History [Lantus Solostar] Losartan [Cozaar] 100 mg PO DAILY 09/26/19 06/21/24 History Mv-Min/Folic/K1/Lycopen/Lutein 1 tab PO DAILY 09/26/19 06/21/24 History [Centrum Silver Men Tablet] Capsaicin Cream [Trixaicin Cream] 1 applic TOPICAL TID PRN 05/03/24 06/21/24 History Cbd Oil (Unk) 1 dose TOPICAL BID PRN 05/03/24 06/21/24 History Ferrous Sulfate [Iron] 325 mg PO Q48H 05/03/24 06/21/24 History HYDROcodone/APAP 5-325MG [[place] 1 tab PO QID 05/03/24 06/21/24 History 5-325] Lidocaine Cream (Unk) 1 applic TOPICAL TID PRN 05/03/24 06/21/24 History Loratadine [Claritin] 10 mg PO DAILY PRN 05/03/24 06/21/24 History Melatonin 3 mg PO HS PRN 05/03/24 06/21/24 History Metoprolol Succinate (ER) [Toprol 100 mg PO DAILY 05/03/24 06/21/24 History Xl] Spironolactone [Aldactone] 50 mg PO DAILY 05/03/24 06/21/24 History hydroCHLOROthiazide [Hydrodiuril] 50 mg PO DAILY 05/03/24 06/21/24 History tadalafiL [Tadalafil] 5 mg PO DAILY 05/03/24 06/21/24 History Cholecalciferol (Vitamin D3) 50 mcg PO DAILY 06/21/24 06/21/24 History [Vitamin D3 (50 Mcg = 2000 Iu)] Colchicine 0.6 mg PO DAILY PRN 06/21/24 06/21/24 History Cyanocobalamin (Vitamin B-12) 2,500 mcg PO DAILY 06/21/24 06/21/24 History [Vitamin B-12] Levothyroxine Sodium [Synthroid] 200 mcg PO DAILY 06/21/24 06/21/24 History Magnesium Oxide [Mag-Ox] 400 mg PO HS 06/21/24 06/21/24 History Pregabalin [Lyrica] 75 mg PO TID 06/21/24 06/21/24 History Sertraline [Zoloft] 50 mg PO DAILY 06/21/24 06/21/24 History Vitamin C With Iron (Unknown 1 tab PO Q48H 06/21/24 06/21/24 History Strength) Zinc Gluconate [Zinc] 50 mg PO Q48H 06/21/24 06/21/24 History tadalafiL 20 mg PO DAILY PRN 06/21/24 06/21/24 History Allergies Allergy/AdvReac Type Severity Reaction Status Date / Time milk AdvReac Diarrhea Verified 06/21/24 10:38 sitagliptin [From Juluvia] AdvReac Unknown Verified 06/21/24 10:38 tramadol AdvReac Unknown Verified 06/21/24 10:38 Physical Exam Vitals: Vital Signs Temp Pulse Resp BP Pulse Ox 06/21/24 10:38 97.6 F 56 L 20 152/65 99 Intake and Output 06/21/24 06/21/24 06/21/24 06:59 14:59 22:59 Other: Weight 172.365 kg General: Male, appears stated age, obese Derm: warm, dry Head: atraumatic, normocephalic, symmetric Eyes: EOMI, no lid lag, anicteric sclera, pupils equal round reactive to light ENT: Nose and ears atraumatic, no thrush, no pharyngeal erythema Neck: No thyromegaly, no cervical lymphadenopathy, trachea midline, supple Mouth: no lip lesion, mucus membranes moist Cardiovascular: S1S2 reg, no murmur, positive posterior tibial pulse bilateral, no edema, capillary refill less than 2 seconds Lungs: clear to ascultation bilateral, no ronchi, no rales, no wheeze, no accessory muscle use Abdominal: soft, nontender to palpation, no guarding, no appreciable organomegaly, normal bowel sounds Ext: no gross muscle atrophy, muscle strength muscle strength 5 out of 5 in all 4 extremities, no contractures Neuro: Bilateral upper and lower extremity motor strength 5 out of 5. No facial droop noted. No slurred speech Psych: Alert, oriented, appropriate affect Results CBC & Chem 7: 06/21/24 11:08 06/21/24 11:08 Labs: Abnormal Lab Results - Last 24 Hours (Table) 06/21/24 06/21/24 Range/Units 11:08 11:08 Plt Count 128 L (150-450) k/uL BUN 25 H (9-20) mg/dL Glucose 104 H (74-99) mg/dL Assessment and Plan Assessment: #) gait imbalance and blurry vision, r/o cva. MRI brain pending. CTA head/neck showing no intracranial or carotid artery stenosis. Reports symptoms have been present and still ongoing since 06/20 afternoon. serial neurochecks. can continue asa 325 mg daily until mri results. telmetry monitoring. check echo #) Prostate cancer, recently diagnosed in March. Currently receiving radiation therapy. Was supposed to have a mri pelvis previously but was unable to due to body habitus #) Dm2 on insulin, continue levemir 34 units bid. continue sliding scale insulin a1c pending. continue home metformin 100 mg bid. 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 Reports had a mri brain in the past to evaluate pitutary gland which was negative. was on testesterone supplementation for 15 years and ceased in march after prostate cancer diagnosis #) Primary htn- continue amlodipine 10 mg daily, hctz 50 mg daily and losartan 100 mg daily. continue psrinolactone 50 mg daily #) PVCs- continue metoprolol cussincate 100 mg daily #) BRISEIDA- continue home bipap Dispo: meds/surge, anticipate d/c home tomorrow. pending mri brain dvt ppx: lovenox 40 mg daily Time with Patient: Greater than 30
[2024-06-21] MEDS: ASPIRIN 325 MG TAB PO STA (15:59)
[2024-06-21] MEDS: [UNRECOGNIZED DRUG - OTHER] PO SCH (16:01)
[2024-06-21] MEDS: SODIUM CHLORIDE 0.9% 1,000 ML IV SCH (16:01)
[2024-06-21 17:03] LABS: Glucose,Whole Blood 129 mg/dL (70-110)
[2024-06-21] MEDS: INSULIN ASPART (NovoLOG) 100 UNIT/ML VIAL SQ SCH (17:18)
[2024-06-21] MEDS: PREGABALIN 75 MG CAP PO SCH (17:24)
[2024-06-21] MEDS: FAMOTIDINE 20 MG/2 ML VIAL IV STA (17:24)
[2024-06-21] MEDS: HYDROcodone/APAP 5-325MG 1 EACH TAB PO SCH (17:24)
[2024-06-21] MEDS: metFORMIN 500 MG TAB PO SCH (17:24)
[2024-06-21 20:15] LABS: Glucose,Whole Blood 101 mg/dL (70-110)
[2024-06-21] MEDS: INSULIN DETEMIR (LEVEMIR) 100 UNIT/ML SYR SQ SCH (20:18)
[2024-06-21] MEDS: MAGNESIUM OXIDE 400 MG TAB PO SCH (20:34)
[2024-06-22 06:11] LABS: Glucose,Whole Blood 103 mg/dL (70-110)
--- NOTE | 2024-06-22 08:54 | P.PN ---
Subjective Progress Note Date: 06/22/24 Principal diagnosis: Kehinde is a 74-year-old male with past medical history of type 2 diabetes on insulin, recent diagnosis of prostate cancer and hypotesteronism. He presented to the hospital complaining of dizziness and blurry vision. CTA head and neck and CT brain revealed no acute process. 06/22: Overnight the patient was noted to have frequent PVCs on telemetry. I discussed and reviewed telemetry strip with the patient's bedside nurse and there are episodes where the patient is sinus bradycardia, has episodes of PVCs and there is a few strips where I am concerned the patient is having type II AV block. The patient reports that his blurry vision has subsided but he still has occasional dizziness Objective - Vital Signs Vital signs: Vital Signs Temp 97.9 F 06/22/24 02:00 Pulse 56 L 06/22/24 02:00 Resp 17 06/22/24 02:00 BP 109/39 06/22/24 02:00 Pulse Ox 98 06/22/24 02:00 FiO2 Intake & Output 06/21/24 06/22/24 06/22/24 18:59 06:59 18:59 Intake Total 118 Balance 118 Weight 172.365 kg Intake: Oral 118 Other: Voiding Method Toilet # Voids 2 - Exam General: Male, appears stated age, obese Derm: warm, dry Head: atraumatic, normocephalic, symmetric Eyes: EOMI, no lid lag, anicteric sclera, pupils equal round reactive to light ENT: Nose and ears atraumatic, no thrush, no pharyngeal erythema Neck: No thyromegaly, no cervical lymphadenopathy, trachea midline, supple Mouth: no lip lesion, mucus membranes moist Cardiovascular: S1S2 reg, no murmur, positive posterior tibial pulse bilateral, no edema, capillary refill less than 2 seconds Lungs: clear to ascultation bilateral, no ronchi, no rales, no wheeze, no accessory muscle use Abdominal: soft, nontender to palpation, no guarding, no appreciable organomegaly, normal bowel sounds Ext: no gross muscle atrophy, muscle strength muscle strength 5 out of 5 in all 4 extremities, no contractures Neuro: Bilateral upper and lower extremity motor strength 5 out of 5. No facial droop noted. No slurred speech Psych: Alert, oriented, appropriate affect - Labs CBC & Chem 7: 06/21/24 11:08 06/21/24 11:08 Labs: Abnormal Lab Results - Last 24 Hours (Table) 06/21/24 06/21/24 06/21/24 Range/Units 11:08 11:08 17:01 Plt Count 128 L (150-450) k/uL BUN 25 H (9-20) mg/dL Glucose 104 H (74-99) mg/dL POC Glucose (mg/dL) 129 H (70-110) mg/dL Assessment and Plan Assessment: #) gait imbalance and blurry vision, r/o cva. MRI brain pending. CTA head/neck showing no intracranial or carotid artery stenosis. serial neurochecks. can continue asa 325 mg daily until mri results. awaiting echo #) Sinus bradycardia. telemetry shows frequent episodes of PVCs but instances of what appears to be 2nd degree av block. Hold metoprolol succinate 100 mg daily #) Prostate cancer, recently diagnosed in March. Currently receiving radiation therapy. Was supposed to have a mri pelvis previously but was unable to due to body habitus #) Dm2 on insulin, continue levemir 34 units bid. continue sliding scale insulin a1c pending. continue home metformin 100 mg bid. 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 Reports had a mri brain in the past to evaluate pitutary gland which was negative. was on testesterone supplementation for 15 years and ceased in march after prostate cancer diagnosis #) Primary htn- continue amlodipine 10 mg daily, and losartan 100 mg daily. continue psrinolactone 50 mg daily. Hold hctz 50 mg daily given labile bp. may need to further adjust bp medications #) PVCs- hold metoprolol given sinus bradycardia and what appears to be 2nd agree av block #) BRISEIDA- continue home bipap Dispo: meds/surge,awiting Mi brain, echo and cardiology input regarding telemetry strips dvt ppx: lovenox 40 mg daily Time with Patient: Greater than 30
[2024-06-22] MEDS ORDERED: NON FORMULARY DRUG (Tadalafil [Tadalafil] 5 MG Tablet) PO SCH (09:00)
[2024-06-22] MEDS ORDERED: METOPROLOL SUCCINATE (ER) 100 MG TAB.ER.24H PO SCH (09:00)
[2024-06-22] MEDS: ASPIRIN 325 MG TAB PO SCH (09:08)
[2024-06-22] MEDS: amLODIPine 10 MG TAB PO SCH (09:09)
[2024-06-22] MEDS: LEVOTHYROXINE 100 MCG TAB PO SCH (09:10)
[2024-06-22] MEDS: FERROUS SULFATE 325 MG TAB PO SCH (09:10)
[2024-06-22] MEDS: CHOLECALCIFEROL 25 MCG (1000 IU) TABLET PO SCH (09:10)
[2024-06-22] MEDS: allopurinoL 300 MG TAB PO SCH (09:11)
[2024-06-22] MEDS: CYANOCOBALAMIN 500 MCG TAB PO SCH (09:11)
[2024-06-22] MEDS: ENOXAPARIN 40 MG/0.4 ML SYRINGE SQ SCH (09:12)
[2024-06-22] MEDS: MELOXICAM 7.5 MG TAB PO SCH (09:13)
[2024-06-22] MEDS: LOSARTAN 50 MG TAB PO SCH (09:13)
[2024-06-22] MEDS: MULTIVITAMINS, THERA 1 EACH TAB PO SCH (09:13)
[2024-06-22] MEDS: PRAVASTATIN SODIUM 20 MG TAB PO SCH (09:14)
[2024-06-22] MEDS: SPIRONOLACTONE 25 MG TAB PO SCH (09:14)
[2024-06-22] MEDS: ZINC SULFATE 220 MG CAP PO SCH (09:14)
[2024-06-22] MEDS: SERTRALINE 50 MG TAB PO SCH (09:14)
--- NOTE | 2024-06-22 10:47 | P.CRDCN ---
History of Present Illness History of present illness: HISTORY OF PRESENT ILLNESS: This is a 74-year-old male with a past medical history significant for hypertension, hyperlipidemia, diabetes, prostate cancer, and morbid obesity. Patient follows in the office with Dr. Holman. We have been asked to see the patient in consultation for second-degree heart block. Patient examined at the bedside. Patient was driving home from radiation and got blurry vision. He got home and checked his blood sugar and that was within normal limits. He then t hought maybe it was his blood pressure. He states his BP has been running on the lower side at home. However, he states it was in the 130-150s so he was not hypotensive. Patient states as he was walking, he would fall to one side and run into the [place] and the sink. He went back to radiation the following day and told them his symptoms and he was directed to come to the ER. At the time of examination, he denies chest pain or pressure. Denies SOB. Telemetry currently reveals sinus mechanism with frequent PVCs which is the patients baseline. Additionally, patient states he used a hospital CPAP last night that did not fit him well. His is supposed to bring his machine today. DIAGNOSTICS: - EKG reveals sinus mechanism with first-degree AV block. Repeat EKG reveals sinus mechanism with frequent PVCs - Chest xray negative for acute process - CT brain: No acute bleed or mass effect. Mild to moderate age-appropriate atrophy. - CT angio head and neck: No evidence of dissection of cervical internal carotid arteries or vertebral arteries or evidence of significant stenosis at the caroti d bifurcations. No evidence of high-grade stenosis or intracranial aneurysm. - Laboratory data: WBC 5.8. Hemoglobin 14.9. Platelet count 128. Sodium 137. Potassium 4.7. BUN 25. Creatinine 0.98. - Current home cardiac medications include metoprolol succinate 100 mg daily, losartan 100 mg daily, hydrochlorothiazide 50 mg daily, aspirin 81 mg daily, amlodipine 10 mg daily, Aldactone 50 mg daily, pravastatin 20 mg daily - Most recent echocardiogram obtained in November 2022 revealed ejection fraction 50 to 55%, mild MR, mild TR -Patient underwent Lexiscan stress test in March 2024 revealing abnormal nuclear scan showing evidence of prior inferior wall myocardial infarction with preserved LV function without any ischemia REVIEW OF SYSTEMS: At the time of my exam: CONSTITUTIONAL: Denies fever or chills. HEENT: Denies blurred vision, vision changes, or eye pain. Denies hemoptysis CARDIOVASCULAR: Denies chest pain. Denies orthopnea. Denies PND. Denies palpitations RESPIRATORY: Denies shortness of breath. GASTROINTESTINAL: Denies abdominal pain. Denies nausea or vomiting. HEMATOLOGIC: Denies bleeding disorders. GENITOURINARY: Denies any blood in urine. SKIN: Denies pruitis. Denies rash. PHYSICAL EXAM: VITAL SIGNS: Reviewed. GENERAL: Well-developed in no acute distress. HEENT: Head is normocephalic. Pupils are equal, round. Sclerae anicteric. Mucous membranes of the mouth are moist. Neck supple. No JVD or thyromegaly LUNGS: Respirations even and unlabored. Lungs essentially clear to auscultation bilaterally. HEART: Irregular rate and rhythm. S1 and S2 heard. ABDOMEN: Soft. Nondistended. Nontender. EXTREMITIES: Normal range of motion. No clubbing or cyanosis. Peripheral pulses intact. No lower extremity edema NEUROLOGIC: Awake and alert. Oriented x 3. ASSESSMENT: Lightheadedness and blurry vision Intermittent second-degree type II heart block, on high-dose beta-lana outpatient Sinus mechanism with frequent PVCs, baseline for patient Prostate cancer, currently undergoing radiation therapy Hypertension Hyperlipidemia Diabetes Morbid obesity: BMI 51.5 Obstructive sleep apnea PLAN: Obtain 2D echo to assess cardiac structure and function Discontinue beta-lana Continue telemetry monitoring Check TSH Await neurology evaluation 30 day event monitor at discharge Patients to bring his home cpap today Further recommendations pending patient course Nurse practitioner note has been reviewed by physician. Signing provider agrees with the documented findings, assessment, and plan of care documented by JIG FITTER as a scribe. Past Medical History Past Medical History: Cancer, GERD/Reflux, Hyperlipidemia, Hypertension, Prostate Disorder, Sleep Apnea/CPAP/BIPAP Additional Past Medical History / Comment(s): BPH, Gouty Arturitis, testicular disorder, History of Any Multi-Drug Resistant Organisms: None Reported Past Surgical History: Cholecystectomy Past Anesthesia/Blood Transfusion Reactions: No Reported Reaction Past Psychological History: No Psychological Hx Reported Smoking Status: Former smoker Past Alcohol Use History: None Reported Past Drug Use History: None Reported Medications and Allergies Home Medications Medication Instructions Recorded Confirmed Type Aspirin 81 mg PO DAILY 09/27/18 06/21/24 History Meloxicam 15 mg PO DAILY 09/27/18 06/21/24 History Pravastatin Sodium [Pravachol] 20 mg PO DAILY 09/27/18 06/21/24 History allopurinoL [Zyloprim] 300 mg PO DAILY 09/27/18 06/21/24 History amLODIPine [Norvasc] 10 mg PO DAILY 09/27/18 06/21/24 History metFORMIN HCL [Glucophage] 1,000 mg PO BID-W/MEALS 09/27/18 06/21/24 History Insulin Glargine,Hum.rec.anlog 34 unit SQ BID 09/26/19 06/21/24 History [Lantus Solostar] Losartan [Cozaar] 100 mg PO DAILY 09/26/19 06/21/24 History Mv-Min/Folic/K1/Lycopen/Lutein 1 tab PO DAILY 09/26/19 06/21/24 History [Centrum Silver Men Tablet] Capsaicin Cream [Trixaicin Cream] 1 applic TOPICAL TID PRN 05/03/24 06/21/24 History Cbd Oil (Unk) 1 dose TOPICAL BID PRN 05/03/24 06/21/24 History Ferrous Sulfate [Iron] 325 mg PO Q48H 05/03/24 06/21/24 History HYDROcodone/APAP 5-325MG [[place] 1 tab PO QID 05/03/24 06/21/24 History 5-325] Lidocaine Cream (Unk) 1 applic TOPICAL TID PRN 05/03/24 06/21/24 History Loratadine [Claritin] 10 mg PO DAILY PRN 05/03/24 06/21/24 History Melatonin 3 mg PO HS PRN 05/03/24 06/21/24 History Metoprolol Succinate (ER) [Toprol 100 mg PO DAILY 05/03/24 06/21/24 History Xl] Spironolactone [Aldactone] 50 mg PO DAILY 05/03/24 06/21/24 History hydroCHLOROthiazide [Hydrodiuril] 50 mg PO DAILY 05/03/24 06/21/24 History tadalafiL [Tadalafil] 5 mg PO DAILY 05/03/24 06/21/24 History Cholecalciferol (Vitamin D3) 50 mcg PO DAILY 06/21/24 06/21/24 History [Vitamin D3 (50 Mcg = 2000 Iu)] Colchicine 0.6 mg PO DAILY PRN 06/21/24 06/21/24 History Cyanocobalamin (Vitamin B-12) 2,500 mcg PO DAILY 06/21/24 06/21/24 History [Vitamin B-12] Levothyroxine Sodium [Synthroid] 200 mcg PO DAILY 06/21/24 06/21/24 History Magnesium Oxide [Mag-Ox] 400 mg PO HS 06/21/24 06/21/24 History Pregabalin [Lyrica] 75 mg PO TID 06/21/24 06/21/24 History Sertraline [Zoloft] 50 mg PO DAILY 06/21/24 06/21/24 History Vitamin C With Iron (Unknown 1 tab PO Q48H 06/21/24 06/21/24 History Strength) Zinc Gluconate [Zinc] 50 mg PO Q48H 06/21/24 06/21/24 History tadalafiL 20 mg PO DAILY PRN 06/21/24 06/21/24 History Allergies Allergy/AdvReac Type Severity Reaction Status Date / Time milk AdvReac Diarrhea Verified 06/21/24 10:38 sitagliptin [From Januvia] AdvReac Unknown Verified 06/21/24 10:38 tramadol AdvReac Unknown Verified 06/21/24 10:38 Physical Exam Vitals: Vital Signs Temp Pulse Pulse Resp BP BP Pulse Ox 06/22/24 07:00 97.5 F L 57 L 16 126/51 100 06/22/24 02:00 97.9 F 56 L 17 109/39 98 06/21/24 19:45 97.7 F 56 L 16 104/61 90 L 06/21/24 16:50 98.4 F 54 L 17 157/68 97 06/21/24 16:00 97.7 F 56 L 16 133/49 98 06/21/24 14:43 53 L 16 124/54 96 06/21/24 10:38 97.6 F 56 L 20 152/65 99 Intake and Output 06/21/24 06/22/24 06/22/24 22:59 06:59 14:59 Intake Total 118 360 Balance 118 360 Intake: Oral 118 360 Other: Voiding Method Toilet Toilet # Voids 1 2 Weight 172.365 kg Results 06/21/24 11:08 06/21/24 11:08 Cardiac Enzymes 06/21/24 Range/Units 11:08 AST 37 (17-59) U/L Coagulation 06/21/24 Range/Units 11:08 PT 10.3 (10.0-12.5) sec APTT 24.2 (22.0-30.0) sec CBC 06/21/24 Range/Units 11:08 WBC 5.8 (3.8-10.6) k/uL RBC 4.90 (4.30-5.90) m/uL Hgb 14.9 (13.0-17.5) gm/dL Hct 45.6 (39.0-53.0) % Plt Count 128 L (150-450) k/uL Comprehensive Metabolic Panel 06/21/24 Range/Units 11:08 Sodium 137 (137-145) mmol/L Potassium 4.7 (3.5-5.1) mmol/L Chloride 102 (98-107) mmol/L Carbon Dioxide 25 (22-30) mmol/L BUN 25 H (9-20) mg/dL Creatinine 0.98 (0.66-1.25) mg/dL Glucose 104 H (74-99) mg/dL Calcium 9.6 (8.4-10.2) mg/dL AST 37 (17-59) U/L ALT 30 (4-49) U/L Alkaline Phosphatase 51 (38-126) U/L Total Protein 7.4 (6.3-8.2) g/dL Albumin 4.5 (3.5-5.0) g/dL Current Medications Generic Name Dose Route Start Last Admin Trade Name Freq PRN Reason Stop Dose Admin Acetaminophen 650 mg 06/21/24 13:33 Acetaminophen Tab 325 Mg Tab PO Q6HR PRN Mild Pain or Fever > 100.5 Hydrocodone Bitart/Acetaminophen 1 each 06/21/24 18:00 06/22/24 09:10 Hydrocodone/Apap 5-325mg 1 Each Tab PO 1 each QID SUZE Administration Allopurinol 300 mg 06/22/24 09:00 06/22/24 09:11 Allopurinol 300 Mg Tab PO 300 mg DAILY SUZE Administration Amlodipine Besylate 10 mg 06/22/24 09:00 06/22/24 09:09 Amlodipine 10 Mg Tab PO 10 mg DAILY SUZE Administration Aspirin 325 mg 06/22/24 09:00 06/22/24 09:08 Aspirin 325 Mg Tab PO 325 mg DAILY SUZE Administration Cholecalciferol 50 mcg 06/22/24 09:00 06/22/24 09:10 Cholecalciferol 25 Mcg (1000 Iu) Tablet PO 50 mcg DAILY SUZE Administration Cyanocobalamin 1,000 mcg 06/22/24 09:00 06/22/24 09:11 Cyanocobalamin 500 Mcg Tab PO 1,000 mcg DAILY SUZE Administration Dextrose/Water 25 ml 06/21/24 15:46 Dextrose 50% Syringe 50 Ml IVP PER PROTOCOL PRN Hypoglycemia Protocol Dextrose/Water 50 ml 06/21/24 15:46 Dextrose 50% Syringe 50 Ml IVP PER PROTOCOL PRN Hypoglycemia Protocol Enoxaparin Sodium 40 mg 06/22/24 09:00 06/22/24 09:12 Enoxaparin 40 Mg/0.4 Ml Syringe SQ 40 mg DAILY SUZE Administration Ferrous Sulfate 325 mg 06/22/24 09:00 06/22/24 09:10 Ferrous Sulfate 325 Mg Tab PO Not Given Q48H [facility] Insulin Aspart 0 unit 06/21/24 17:30 06/22/24 06:20 Insulin Aspart (Novolog) 100 Unit/Ml Vial SQ Not Given ACHS [facility] Protocol Insulin Detemir 25 unit 06/22/24 09:00 Insulin Detemir (Levemir) 100 Unit/Ml Syr SQ BID [facility] Levothyroxine Sodium 200 mcg 06/22/24 06:30 06/22/24 09:10 Levothyroxine 100 Mcg Tab PO 200 mcg DAILY@0630 [facility] Administration Loratadine 10 mg 06/21/24 14:33 Loratadine 10 Mg Tab PO DAILY PRN Allergy Symptoms Losartan Potassium 100 mg 06/22/24 09:00 06/22/24 09:13 Losartan 50 Mg Tab PO 100 mg DAILY [facility] Administration Magnesium Oxide 400 mg 06/21/24 21:00 06/21/24 20:34 Magnesium Oxide 400 Mg Tab PO 400 mg HS SUZE Administration Melatonin 3 mg 06/21/24 14:33 Melatonin 3 Mg Tablet PO HS PRN Insomnia Meloxicam 15 mg 06/22/24 09:00 06/22/24 09:13 Meloxicam 7.5 Mg Tab PO 15 mg DAILY SUZE Administration Metformin HCl 1,000 mg 06/21/24 17:30 06/22/24 09:09 Metformin 500 Mg Tab PO 1,000 mg BID-W/MEALS SUZE Administration Multivitamins 1 each 06/22/24 09:00 06/22/24 09:13 Multivitamins, Thera 1 Each Tab PO 1 each DAILY SUZE Administration Naloxone HCl 0.2 mg 06/21/24 13:33 Naloxone 0.4 Mg/Ml 1 Ml Vial IV Q2M PRN Opioid Reversal Ondansetron HCl 4 mg 06/21/24 13:33 Ondansetron 4 Mg/2 Ml Vial IVP Q8HR PRN Nausea And Vomiting Pravastatin Sodium 20 mg 06/22/24 09:00 06/22/24 09:14 Pravastatin Sodium 20 Mg Tab PO 20 mg DAILY SUZE Administration Pregabalin 75 mg 06/21/24 16:00 06/22/24 09:14 Pregabalin 75 Mg Cap PO 75 mg TID SUZE Administration Sertraline HCl 50 mg 06/22/24 09:00 06/22/24 09:14 Sertraline 50 Mg Tab PO 50 mg DAILY SUZE Administration Spironolactone 50 mg 06/22/24 09:00 06/22/24 09:14 Spironolactone 25 Mg Tab PO 50 mg DAILY SUZE Administration Zinc Sulfate 220 mg 06/22/24 09:00 06/22/24 09:14 Zinc Sulfate 220 Mg Cap PO 220 mg Q48H SUZE Administration Intake and Output 06/21/24 06/22/24 06/22/24 22:59 06:59 14:59 Intake Total 118 360 Balance 118 360 Intake: Oral 118 360 Other: Voiding Method Toilet Toilet # Voids 1 2 Weight 172.365 kg 06/21/24 11:08 06/21/24 11:08
--- NOTE | 2024-06-22 11:37 | CA ---
Transthoracic Echo Report Name: Kehinde Burch Age: 74 Gender: M : 1950 Exam Date: 06/22/2024 09:22 Exam Location: [facility] Ht (in): 72 Wt (lb): 380 Ordering Physician: Giacomo Jimenez MD Attending/Referring Phys: Knuckler Susan Johns RDCS Procedure CPT: Indications: stroke Cardiac Hx: Technical Quality: Technically difficult study Contrast 1: Definity Total Dose (mL): 1 Contrast 2: Total Dose (mL): MEASUREMENTS (Male / Female) Normal Values 2D ECHO LV Diastolic Diameter PLAX 6.1 cm 4.2 - 5.9 / 3.9 - 5.3 cm LV Systolic Diameter PLAX 4.4 cm IVS Diastolic Thickness 1.3 cm 0.6 - 1.0 / 0.6 - 0.9 cm LVPW Diastolic Thickness 1.3 cm 0.6 - 1.0 / 0.6 - 0.9 cm LV Relative Wall Thickness 0.4 RV Internal Dim ED PLAX 2.9 cm LA Systolic Diameter LX 4.5 cm 3.0 - 4.0 / 2.7 - 3.8 cm LA Volume 76.9 cm??? 18 - 58 / 22 - 52 cm??? LA Volume Index 25.2 cm???/m??? 16 - 28 cm???/m??? M-MODE Aortic Root Diameter MM 3.8 cm DOPPLER AV Peak Velocity 143.9 cm/s AV Peak Gradient 8.3 mmHg MV Area PHT 2.0 cm??? Mitral E Point Velocity 104.4 cm/s Mitral A Point Velocity 99.8 cm/s Mitral E to A Ratio 1.0 MV Deceleration Time 380.0 ms TR Peak Velocity 276.4 cm/s TR Peak Gradient 30.6 mmHg Right Ventricular Systolic Press 35.6 mmHg FINDINGS Left Ventricle Left ventricular ejection fraction is estimated at 50-55 %. Mildly increased septal wall thickness. Mildly increased left ventricular diastolic diameter. Right Ventricle Normal right ventricular size. Mild pulmonary hypertension. Right Atrium Normal right atrial size. No right atrial thrombus or mass seen. Left Atrium Mildly increased left atrial diameter. Moderately increased left atrial volume. Mildly increased left atrial area. Mitral Valve Structurally normal mitral valve. Mild mitral regurgitation. Aortic Valve Trileaflet aortic valve. No aortic valve stenosis or regurgitation. Tricuspid Valve Structurally normal tricuspid valve. Mild tricuspid regurgitation. Pulmonic Valve Pulmonic valve not well visualized. Pericardium No pericardial or pleural effusion. Aorta Mild aortic dilatation at the level of the sinuses of valsalva 38 mm CONCLUSIONS Technically suboptimal study secondary to poor echo windows LV systolic function is normal Dilated left atrium Mild mitral regurgitation Mild tricuspid regurgitation Previewed by: Dr. Db Holman MD (Electronically Signed) Final Date: 22 June 2024 11:37
[2024-06-22 12:07] LABS: Chol/HDL Ratio 4.31 Ratio; HDL Cholesterol 47.6 mg/dL (40.00-60.00); VLDL Calculation 89.4 mg/dL (5.00-40.00)
[2024-06-22 12:24] LABS: Glucose,Whole Blood 109 mg/dL (70-110)
--- NOTE | 2024-06-22 13:16 | MR ---
MRI brain without contrast HISTORY: Stroke. COMPARISON: None. TECHNIQUE: Multiecho multiplanar images of brain were obtained without contrast. On the T1-weighted sagittal images, the midline structures including the craniovertebral junction rel ationships are normal. The ventricles, basal cisterns and sulci over convexities are moderately enlarged consistent with mod erate generalized atrophy but appropriate for the patient's age. There is mild multifocal foci of inc reased signal intensity on the FLAIR inversion recovery images consistent with mild chronic ischemic white matter change. Based on diffusion-weighted imaging there is no acute ischemic event. There is no diffusion restricti on. The posterior fossa including the brainstem, fourth ventricle and cerebellopontine angles appear norm al. The intraorbital contents appear normal. Visualized paranasal sinuses and mastoid air cells are well aerated. IMPRESSION: 1. Moderate age-appropriate atrophy. 2. No mass effect or shift in midline structures. 3. No acute ischemic event [facility], , 06/22/2024 1:14 PM
--- NOTE | 2024-06-22 15:17 | P.CNNES ---
History of Present Illness Consult date: 06/22/24 Requesting physician: Vinod Blanco Reason for Consult: blurred vision and balance issues History of Present Illness: This is a 74-year-old gentleman who presented emergency department because of episode of off balance and double vision. Patient stated that presents to the hospital on 06/21/2024 since when he was driving back home he felt he is having double vision in both eyes as well as he felt his balance was off. He stated that he just finished his radiation therapy for his prostate cancer. He denies any history of stroke but he was told he has possibly TIA but he does not remember the symptoms. Denies any history of atrial fibrillation. He feels he is doing drastically better and denies having any further double vision. Denies any focal weakness numbness speech difficulty or swallowing. Home he is on a spirin 81 mg daily. During this hospital visit seems that the he was told he has second-degree heart block. Some of the workup during this hospital visit consisted of: Hemoglobin A1c 6.5 Lipid panel is triglyceride 447, cholesterol 205, LDL is pending and HDL is 47. CT of the head is reported as no acute bleed, mass effect. I personally reviewed the CT and agree with the report. CT angiography of the head and neck is reported as no evidence of dissection of cervical internal carotid artery or vertebral artery or any evidence of significant stenosis at the carotid bifurcation. No evidence of high-grade stenosis or intracranial aneurysm. The echo was reported as left ventricle systolic function is normal. Dilated left atrium. Review of Systems As per HPI. Past Medical History Past Medical History: Cancer, GERD/Reflux, Hyperlipidemia, Hypertension, Prostate Disorder, Sleep Apnea/CPAP/BIPAP Additional Past Medical History / Comment(s): BPH, Gouty Arturitis, testicular disorder, History of Any Multi-Drug Resistant Organisms: None Reported Past Surgical History: Cholecystectomy Past Anesthesia/Blood Transfusion Reactions: No Reported Reaction Past Psychological History: No Psychological Hx Reported Smoking Status: Former smoker Past Alcohol Use History: None Reported Past Drug Use History: None Reported Medications and Allergies Home Medications Medication Instructions Recorded Confirmed Type Aspirin 81 mg PO DAILY 09/27/18 06/21/24 History Meloxicam 15 mg PO DAILY 09/27/18 06/21/24 History Pravastatin Sodium [Pravachol] 20 mg PO DAILY 09/27/18 06/21/24 History allopurinoL [Zyloprim] 300 mg PO DAILY 09/27/18 06/21/24 History amLODIPine [Norvasc] 10 mg PO DAILY 09/27/18 06/21/24 History metFORMIN HCL [Glucophage] 1,000 mg PO BID-W/MEALS 09/27/18 06/21/24 History Insulin Glargine,Hum.rec.anlog 34 unit SQ BID 09/26/19 06/21/24 History [Lantus Solostar] Losartan [Cozaar] 100 mg PO DAILY 09/26/19 06/21/24 History Mv-Min/Folic/K1/Lycopen/Lutein 1 tab PO DAILY 09/26/19 06/21/24 History [Centrum Silver Men Tablet] Capsaicin Cream [Trixaicin Cream] 1 applic TOPICAL TID PRN 05/03/24 06/21/24 History Cbd Oil (Unk) 1 dose TOPICAL BID PRN 05/03/24 06/21/24 History Ferrous Sulfate [Iron] 325 mg PO Q48H 05/03/24 06/21/24 History HYDROcodone/APAP 5-325MG [[place] 1 tab PO QID 05/03/24 06/21/24 History 5-325] Lidocaine Cream (Unk) 1 applic TOPICAL TID PRN 05/03/24 06/21/24 History Loratadine [Claritin] 10 mg PO DAILY PRN 05/03/24 06/21/24 History Melatonin 3 mg PO HS PRN 05/03/24 06/21/24 History Metoprolol Succinate (ER) [Toprol 100 mg PO DAILY 05/03/24 06/21/24 History Xl] Spironolactone [Aldactone] 50 mg PO DAILY 05/03/24 06/21/24 History hydroCHLOROthiazide [Hydrodiuril] 50 mg PO DAILY 05/03/24 06/21/24 History tadalafiL [Tadalafil] 5 mg PO DAILY 05/03/24 06/21/24 History Cholecalciferol (Vitamin D3) 50 mcg PO DAILY 06/21/24 06/21/24 History [Vitamin D3 (50 Mcg = 2000 Iu)] Colchicine 0.6 mg PO DAILY PRN 06/21/24 06/21/24 History Cyanocobalamin (Vitamin B-12) 2,500 mcg PO DAILY 06/21/24 06/21/24 History [Vitamin B-12] Levothyroxine Sodium [Synthroid] 200 mcg PO DAILY 06/21/24 06/21/24 History Magnesium Oxide [Mag-Ox] 400 mg PO HS 06/21/24 06/21/24 History Pregabalin [Lyrica] 75 mg PO TID 06/21/24 06/21/24 History Sertraline [Zoloft] 50 mg PO DAILY 06/21/24 06/21/24 History Vitamin C With Iron (Unknown 1 tab PO Q48H 06/21/24 06/21/24 History Strength) Zinc Gluconate [Zinc] 50 mg PO Q48H 06/21/24 06/21/24 History tadalafiL 20 mg PO DAILY PRN 06/21/24 06/21/24 History Allergies Allergy/AdvReac Type Severity Reaction Status Date / Time milk AdvReac Diarrhea Verified 06/21/24 10:38 sitagliptin [From Julienuvbryanna] AdvReac Unknown Verified 06/21/24 10:38 tramadol AdvReac Unknown Verified 06/21/24 10:38 Physical Examination - Vital Signs Vital Signs: Vital Signs Temp Pulse Pulse Resp BP BP Pulse Ox 06/22/24 07:00 97.5 F L 57 L 16 126/51 100 06/22/24 02:00 97.9 F 56 L 17 109/39 98 06/21/24 19:45 97.7 F 56 L 16 104/61 90 L 06/21/24 16:50 98.4 F 54 L 17 157/68 97 06/21/24 16:00 97.7 F 56 L 16 133/49 98 Intake and Output 06/22/24 06/22/24 06/22/24 06:59 14:59 22:59 Intake Total 600 Balance 600 Intake: Oral 600 Other: Voiding Method Toilet # Voids 2 1 GENERAL: The patient is sitting up on bed and is not in acute distress. Is morbdily obese. NEUROLOGICAL: Higher mental function: The patient is awake, alert, oriented to self, place and time. Patient is following commands. No aphasia and no neglect. Cranial nerves: The pupils are round, equal and reactive to light and accommodation. Visual pimentel are full to confrontation throughout. Extraocular movement is intact no nystagmus is noted. Facial sensation is normal to touch throughout. The facial strength is normal throughout. Hearing is normal bilaterally to hand rub. Tongue is midline and moved [id number] without any difficulty. No dysarthria is noted. Shoulder shrug is normal bilaterally. Motor: The strength is 5 over 5 throughout. Normal tone and bulk. Cerebellum: Normal finger to nose bilaterally. Sensation: Sensation is normal to touch throughout. Results - Laboratory Findings CBC and BMP: 06/21/24 11:08 06/21/24 11:08 Abnormal Lab Findings: Abnormal Labs 06/21/24 06/21/24 06/21/24 11:08 11:08 11:08 Plt Count 128 L BUN 25 H Glucose 104 H POC Glucose (mg/dL) Hemoglobin A1c 6.5 H Triglycerides Cholesterol VLDL Cholesterol, Calc 06/21/24 06/21/24 11:08 17:01 Plt Count BUN Glucose POC Glucose (mg/dL) 129 H Hemoglobin A1c Triglycerides 447.00 H Cholesterol 205.00 H VLDL Cholesterol, Calc 89.40 H Assessment and Plan Assessment: This is a 74-year-old gentleman who presented emergency department because of diplopia as well as off balance. Diplopia has resolved. Probable transient ischemic attack. Per cardiology team the patient has first-degree AV block on the EKG on the repeat EKG patient has frequent PVCs. Dyslipidemia Questionable TIA that patient was notified that he had a TIA but is not aware of the symptoms he had Hypertension History of prostate cancer on radiation therapy History of sleep apnea on BiPAP Morbid obesity Plan: Pending MRI of the brain It seems that the patient home aspirin was increased from 81 to 325 daily by the ED physician. I started the patient on Plavix 75 mg daily and since I started plavix will lower ASA to 81mg daily. Recommend the patient to be on dual antiplatelet for 21 days and after 21 days stop aspirin but continue Plavix indefinitely from a neurologic perspective Patient is on pravastatin 20 mg daily. Radiology is on board Continue neurochecks Cardiac monitoring. Patient had a 30-day cardiac monitoring ordered PT, OT and DIRECTOR OF SLOT OPERATIONS are consulted DVT flexes the patient is on Lovenox. Upon discharge recommend the patient to follow-up with a neurologist as an outpatient within 2 to 3 weeks Will defer the rest of the medical management to primary and other specialist Time with Patient: Greater than 30
[2024-06-22 17:32] LABS: Glucose,Whole Blood 136 mg/dL (70-110)
[2024-06-22] MEDS: INSULIN DETEMIR (LEVEMIR) 100 UNIT/ML SYR SQ SCH (18:32)
[2024-06-22] MEDS: CLOPIDOGREL 75 MG TAB PO SCH (18:37)
[2024-06-22 19:54] LABS: Glucose,Whole Blood 145 mg/dL (70-110)
[2024-06-22] MEDS: INSULIN GLARGINE SQ SCH (22:34)
[2024-06-23 06:08] LABS: Glucose,Whole Blood 82 mg/dL (70-110)
[2024-06-23] MEDS: ASPIRIN 81 MG PO SCH (08:22)
--- NOTE | 2024-06-23 10:34 | P.PN ---
Subjective Progress Note Date: 06/22/24 Principal diagnosis: Kehinde is a 74-year-old male with past medical history of type 2 diabetes on insulin, recent diagnosis of prostate cancer and hypotesteronism. He presented to the hospital complaining of dizziness and blurry vision. CTA head and neck and CT brain revealed no acute process. 06/22: Overnight the patient was noted to have frequent PVCs on telemetry. I discussed and reviewed telemetry strip with the patient's bedside nurse and there are episodes where the patient is sinus bradycardia, has episodes of PVCs and there is a few strips where I am concerned the patient is having type II AV block. The patient reports that his blurry vision has subsided but he still has occasional dizziness - Exam General: Male, appears stated age, obese Derm: warm, dry Head: atraumatic, normocephalic, symmetric Eyes: EOMI, no lid lag, anicteric sclera, pupils equal round reactive to light ENT: Nose and ears atraumatic, no thrush, no pharyngeal erythema Neck: No thyromegaly, no cervical lymphadenopathy, trachea midline, supple Mouth: no lip lesion, mucus membranes moist Cardiovascular: S1S2 reg, no murmur, positive posterior tibial pulse bilateral, no edema, capillary refill less than 2 seconds Lungs: clear to ascultation bilateral, no ronchi, no rales, no wheeze, no accessory muscle use Abdominal: soft, nontender to palpation, no guarding, no appreciable organomegaly, normal bowel sounds Ext: no gross muscle atrophy, muscle strength muscle strength 5 out of 5 in all 4 extremities, no contractures Neuro: Bilateral upper and lower extremity motor strength 5 out of 5. No facial droop noted. No slurred speech Psych: Alert, oriented, appropriate affect Objective - Vital Signs Vital signs: Vital Signs Temp 97.5 F L 06/23/24 07:10 Pulse 61 06/23/24 07:10 Resp 16 06/23/24 07:10 BP 117/58 06/23/24 07:10 Pulse Ox 99 06/23/24 07:10 FiO2 Intake & Output 06/22/24 06/23/24 06/23/24 18:59 06:59 18:59 Intake Total 718 360 Balance 718 360 Intake: Oral 718 360 Other: Voiding Method Toilet # Voids 1 3 - Labs CBC & Chem 7: 06/21/24 11:08 06/21/24 11:08 Labs: Abnormal Lab Results - Last 24 Hours (Table) 06/21/24 06/21/24 06/22/24 Range/Units 11:08 11:08 17:31 POC Glucose (mg/dL) 136 H (70-110) mg/dL Hemoglobin A1c 6.5 H (<=6.0) % Triglycerides 447.00 H (0.00-149.00) mg/dL Cholesterol 205.00 H (0.00-200.00) mg/dL VLDL Cholesterol, Calc 89.40 H (5.00-40.00) mg/dL 06/22/24 Range/Units 19:52 POC Glucose (mg/dL) 145 H (70-110) mg/dL Hemoglobin A1c (<=6.0) % Triglycerides (0.00-149.00) mg/dL Cholesterol (0.00-200.00) mg/dL VLDL Cholesterol, Calc (5.00-40.00) mg/dL Assessment and Plan Assessment: Assessment and Plan Assessment: #) gait imbalance and blurry vision, r/o cva. MRI brain pending. CTA head/neck showing no intracranial or carotid artery stenosis. serial neurochecks. can continue asa 325 mg daily until mri results. awaiting echo #) Sinus bradycardia. telemetry shows frequent episodes of PVCs but instances of what appears to be 2nd degree av block. Hold metoprolol succinate 100 mg daily #) Prostate cancer, recently diagnosed in March. Currently receiving radiation therapy. Was supposed to have a mri pelvis previously but was unable to due to body habitus #) Dm2 on insulin, continue levemir 34 units bid. continue sliding scale insulin a1c pending. continue home metformin 100 mg bid. 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 Reports had a mri brain in the past to evaluate pitutary gland which was negative. was on testesterone supplementation for 15 years and ceased in march after prostate cancer diagnosis #) Primary htn- continue amlodipine 10 mg daily, and losartan 100 mg daily. continue psrinolactone 50 mg daily. Hold hctz 50 mg daily given labile bp. may need to further adjust bp medications #) PVCs- hold metoprolol given sinus bradycardia and what appears to be 2nd agree av block #) BRISEIDA- continue home bipap 12/8 Patient seen and examined at bedside Still status having some intermittent blurry vision I did review with to the results of the MRI which showed show some atrophy but no acute strokes Echocardiogram was performed which was limited due to body habitus, it does not appear that it was performed with a bubble study however MRI was negative for stroke Neurology has been consulted as well as cardiology Awaiting their recommendations Anticipate observing the patient for next 24 hours with an discharge on 06/24/2024 Patient is to work with PT OT as well, he lives at home with his , walker at bedside Dispo: meds/surge,awiting Mi brain, echo and cardiology input regarding telemetry strips dvt ppx: lovenox 40 mg daily Time with Patient: Greater than 30
--- NOTE | 2024-06-23 11:13 | P.PN ---
Subjective HISTORY OF PRESENT ILLNESS: This is a 74-year-old male with a past medical history significant for hypertension, hyperlipidemia, diabetes, prostate cancer, and morbid obesity. Patient follows in the office with Dr. Holman. We have been asked to see the patient in consultation for second-degree heart block. Patient examined at the bedside. Patient was driving home from radiation and got blurry vision. He got home and checked his blood sugar and that was within normal limits. He then thought maybe it was his blood pressure. He states his BP has been running on the lower side at home. However, he states it was in the 130-150s so he was not hypotensive. Patient states as he was walking, he would fall to one side and run into the freitas and the sink. He went back to radiation the following day and told them his symptoms and he was directed to come to the ER. At the time of examination, he denies chest pain or pressure. Denies SOB. Telemetry currently reveals sinus mechanism with frequent PVCs which is the patients baseline. Additionally, patient states he used a hospital CPAP last night that did not fit him well. His is supposed to bring his machine today. DIAGNOSTICS: - EKG reveals sinus mechanism with first-degree AV block. Repeat EKG reveals sinus mechanism with frequent PVCs - Chest xray negative for acute process - CT brain: No acute bleed or mass effect. Mild to moderate age-appropriate atrophy. - CT angio head and neck: No evidence of dissection of cervical internal carotid arteries or vertebral arteries or evidence of significant stenosis at the carotid bifurcations. No evidence of high-grade stenosis or intracranial aneurysm. - Laboratory data: WBC 5.8. Hemoglobin 14.9. Platelet count 128. Sodium 137. Potassium 4.7. BUN 25. Creatinine 0.98. - Current home cardiac medications include metoprolol succinate 100 mg daily, losartan 100 mg daily, hydrochlorothiazide 50 mg daily, aspirin 81 mg daily, am lodipine 10 mg daily, Aldactone 50 mg daily, pravastatin 20 mg daily - Most recent echocardiogram obtained in November 2022 revealed ejection fraction 50 to 55%, mild MR, mild TR -Patient underwent Lexiscan stress test in March 2024 revealing abnormal nuclear scan showing evidence of prior inferior wall myocardial infarction with preserved LV function without any ischemia 06/23/2024 Patient examined this morning the bedside. Patient states he is feeling better today. He denies any chest pain or pressure. He denies shortness of breath. Telemetry reveals sinus mechanism., Per nursing, no further episodes of second- degree heart block overnight. Echocardiogram completed revealing ejection f raction 50 to 55%, mild pulmonary hypertension, mild mitral regurgitation, mild tricuspid regurgitation. Patient has been evaluated by neurology and thought to have had a TIA. MRI of the brain completed negative for CVA. PHYSICAL EXAM: VITAL SIGNS: Reviewed. GENERAL: Well-developed in no acute distress. HEENT: Head is normocephalic. Pupils are equal, round. Sclerae anicteric. Mucous membranes of the mouth are moist. Neck supple. No JVD or thyromegaly LUNGS: Respirations even and unlabored. Lungs essentially clear to auscultation bilaterally. HEART: Regular rate and rhythm. S1 and S2 heard. ABDOMEN: Soft. Nondistended. Nontender. EXTREMITIES: Normal range of motion. No clubbing or cyanosis. Peripheral pulses intact. No lower extremity edema NEUROLOGIC: Awake and alert. Oriented x 3. ASSESSMENT: Lightheadedness and blurry vision, possible TIA per neurology Intermittent second-degree type II heart block, on high-dose beta-lana outpatient Sinus mechanism with frequent PVCs, baseline for patient Prostate cancer, currently undergoing radiation therapy Hypertension Hyperlipidemia Diabetes Morbid obesity: BMI 51.5 Obstructive sleep apnea PLAN: Metoprolol discontinued yesterday. Telemetry reviewed this morning revealing sinus mechanism with no further episodes of second-degree heart block. Continue telemetry monitoring 30 day event monitor at discharge Further recommendations pending patient course Nurse practitioner note has been reviewed by physician. Signing provider agrees with the documented findings, assessment, and plan of care documented by [employer] as a scribe. Objective - Vital Signs Vital signs: Vital Signs Temp 97.5 F L 06/23/24 07:10 Pulse 61 06/23/24 07:10 Resp 16 06/23/24 07:10 BP 117/58 06/23/24 07:10 Pulse Ox 99 06/23/24 07:10 FiO2 Intake & Output 06/22/24 06/23/24 06/23/24 18:59 06:59 18:59 Intake Total 718 360 Balance 718 360 Intake: Oral 718 360 Other: Voiding Method Toilet # Voids 1 3 - Labs CBC & Chem 7: 06/21/24 11:08 06/21/24 11:08 Labs: Abnormal Lab Results - Last 24 Hours (Table) 06/21/24 06/21/24 06/22/24 Range/Units 11:08 11:08 17:31 POC Glucose (mg/dL) 136 H (70-110) mg/dL Hemoglobin A1c 6.5 H (<=6.0) % Triglycerides 447.00 H (0.00-149.00) mg/dL Cholesterol 205.00 H (0.00-200.00) mg/dL VLDL Cholesterol, Calc 89.40 H (5.00-40.00) mg/dL 06/22/24 Range/Units 19:52 POC Glucose (mg/dL) 145 H (70-110) mg/dL Hemoglobin A1c (<=6.0) % Triglycerides (0.00-149.00) mg/dL Cholesterol (0.00-200.00) mg/dL VLDL Cholesterol, Calc (5.00-40.00) mg/dL
[2024-06-23 12:42] LABS: Glucose,Whole Blood 89 mg/dL (70-110)
--- NOTE | 2024-06-23 16:47 | P.PN ---
Subjective Progress Note Date: 06/23/24 I am following-up with patient and he states he feels back to baseline. He stated in the past he had episode of emboli and unsure cause. He was on cardiac event monitor for 7 days and negative for A-fib. He has episodes of blood pressure systolic in 120-130's while diastolic is in 20-30's. He stated he felt that he noticed once he was on water pills that was increased by his Rn Paralegal. Objective - Vital Signs Vital signs: Vital Signs Temp 97.8 F 06/23/24 15:00 Pulse 56 L 06/23/24 15:00 Resp 18 06/23/24 15:00 BP 135/67 06/23/24 15:00 Pulse Ox 97 06/23/24 15:00 FiO2 Intake & Output 06/22/24 06/23/24 06/23/24 18:59 06:59 18:59 Intake Total 718 720 Balance 718 720 Intake: Oral 718 720 Other: Voiding Method Toilet # Voids 1 3 5 - Exam GENERAL: The patient is sitting up on bed and is not in acute distress. Is morbdily obese. NEUROLOGICAL: Higher mental function: The patient is awake, alert, oriented to self, place and time. Patient is following commands. No aphasia and no neglect. Cranial nerves: The pupils are round, equal and reactive to light and accommodation. Visual pimentel are full to confrontation throughout. Extraocular movement is intact no nystagmus is noted. Facial sensation is normal to touch throughout. The facial strength is normal throughout. Hearing is normal bilaterally to hand rub. Tongue is midline and moved [id number] without any difficulty. No dysarthria is noted. Shoulder shrug is normal bilaterally. Motor: The strength is 5 over 5 throughout. Normal tone and bulk. Cerebellum: Normal finger to nose bilaterally. Sensation: Sensation is normal to touch throughout. Some of the workup during this hospital visit consisted of: Hemoglobin A1c 6.5 Lipid panel is triglyceride 447, cholesterol 205, LDL is pending and HDL is 47. CT of the head is reported as no acute bleed, mass effect. I personally reviewed the CT and agree with the report. CT angiography of the head and neck is reported as no evidence of dissection of cervical internal carotid artery or vertebral artery or any evidence of significant stenosis at the carotid bifurcation. No evidence of high-grade st enosis or intracranial aneurysm. 2D echo was reported as left ventricle systolic function is normal. Dilated left atrium. MRI Brain: Moderate age-appropriate atrophy. No mass effect or shift in midline structures. No acute ischemic event. - Labs CBC & Chem 7: 06/21/24 11:08 06/21/24 11:08 Labs: Abnormal Lab Results - Last 24 Hours (Table) 06/22/24 06/22/24 Range/Units 17:31 19:52 POC Glucose (mg/dL) 136 H 145 H (70-110) mg/dL Assessment and Plan Assessment: This is a 74-year-old gentleman who presented emergency department because of diplopia as well as off balance. Diplopia has resolved. Transient episode of diplopia and "off balance": Unsure exact etiology. Possible TIA (especially with his risk factors and history of emboli in past) vs severe low diastolic blood pressure Per cardiology team the patient has first-degree AV block on the EKG on the rep eat EKG patient has frequent PVCs. Dyslipidemia Questionable TIA that patient was notified that he had a TIA but is not aware of the symptoms he had Hypertension History of prostate cancer on radiation therapy History of sleep apnea on BiPAP Morbid obesity Plan: I started the patient on Plavix 75 mg daily and started ASA to 81mg daily. After 21 days stop Plavix but continue ASA indefinitely since unsure if truly TIA vs due to low diastolic blood pressure. Patient is on pravastatin 20 mg daily. Recommend a 30 day event monitor. Cardiology is on board. According to patient he was told by cardiology team to stop taking water pill (that was increased by his Neprhology team) and since start he felt he had symptoms. Continue neurochecks Cardiac monitoring. Patient was notified to keep diary of blood pressure of bilateral upper extremities and to follow-up with cardiology team. PT, OT and TOBACCO SIEVE OPERATOR are consulted DVT flexes the patient is on Lovenox. Upon discharge recommend the patient to follow-up with a neurologist as an outpatient within 2 to 3 weeks Will defer the rest of the medical management to primary and other specialist The plan is discussed with patient and his . Also discussed with his nurse. There is no further neurological work-up. Will sign off. Please reconsult if needed. Time with Patient: Less than 30
[2024-06-23 17:17] LABS: Glucose,Whole Blood 161 mg/dL (70-110)
[2024-06-23] MEDS: polyethylene glycoL 3350 17 GM POWD.PACK PO SCH (17:35)
[2024-06-23 20:06] LABS: Glucose,Whole Blood 132 mg/dL (70-110)
[2024-06-24 05:51] LABS: Glucose,Whole Blood 94 mg/dL (70-110)
[2024-06-24 10:03] VITALS: BP 111/42; PULSE 35; RESP 16; TEMP 98.2
--- NOTE | 2024-06-24 10:15 | P.PN ---
Subjective Progress Note Date: 06/24/24 HISTORY OF PRESENT ILLNESS: This is a 74-year-old male with a past medical history significant for hype rtension, hyperlipidemia, diabetes, prostate cancer, and morbid obesity. Patient follows in the office with Dr. Holman. We have been asked to see the patient in consultation for second-degree heart block. Patient examined at the bedside. Patient was driving home from radiation and got blurry vision. He got home and checked his blood sugar and that was within normal limits. He then thought maybe it was his blood pressure. He states his BP has been running on the lower side at home. However, he states it was in the 130-150s so he was not hypotensive. Patient states as he was walking, he would fall to one side and run into the freitas and the sink. He went back to radiation the following day and told them his symptoms and he was directed to come to the ER. At the time of examination, he denies chest pain or pressure. Denies SOB. Telemetry currently reveals sinus mechanism with frequent PVCs which is the patients baseline. Additionally, patient states he used a hospital CPAP last night that did not fit him well. His is supposed to bring his machine today. DIAGNOSTICS: - EKG reveals sinus mechanism with first-degree AV block. Repeat EKG reveals sinus mechanism with frequent PVCs - Chest xray negative for acute process - CT brain: No acute bleed or mass effect. Mild to moderate age-appropriate atrophy. - CT angio head and neck: No evidence of dissection of cervical internal carotid arteries or vertebral arteries or evidence of significant stenosis at the carotid bifurcations. No evidence of high-grade stenosis or intracranial aneurysm. - Laboratory data: WBC 5.8. Hemoglobin 14.9. Platelet count 128. Sodium 137. Potassium 4.7. BUN 25. Creatinine 0.98. - Current home cardiac medications include metoprolol succinate 100 mg daily, losartan 100 mg daily, hydrochlorothiazide 50 mg daily, aspirin 81 mg daily, amlodipine 10 mg daily, Aldactone 50 mg daily, pravastatin 20 mg daily - Most recent echocardiogram obtained in November 2022 revealed ejection fraction 50 to 55%, mild MR, mild TR -Patient underwent Lexiscan stress test in March 2024 revealing abnormal nuclear scan showing evidence of prior inferior wall myocardial infarction with preserved LV function without any ischemia 06/23/2024 Patient examined this morning the bedside. Patient states he is feeling better today. He denies any chest pain or pressure. He denies shortness of breath. Telemetry reveals sinus mechanism., Per nursing, no further episodes of second- degree heart block overnight. Echocardiogram completed revealing ejection fraction 50 to 55%, mild pulmonary hypertension, mild mitral regurgitation, mild tricuspid regurgitation. Patient has been evaluated by neurology and thought to have had a TIA. MRI of the brain completed negative for CVA. 06/24/2024. Patient seen and examined. Blood pressure 124/49, heart rate 68, pulse ox 97% on CPAP. Patient concerned that his blood pressure is normally high and now low but upon review blood pressure is running in a good numbers. No chest pain. Patient is scheduled to receive 30-day event monitor this morning. Telemetry reviewed and no further episodes of second-degree heart block. PHYSICAL EXAM: VITAL SIGNS: Reviewed. GENERAL: Well-developed in no acute distress. HEENT: Head is normocephalic. Pupils are equal, round. Sclerae anicteric. Mucous membranes of the mouth are moist. Neck supple. No JVD or thyromegaly LUNGS: Respirations even and unlabored. Lungs essentially clear to auscultation bilaterally. HEART: Regular rate and rhythm. S1 and S2 heard. ABDOMEN: Soft. Nondistended. Nontender. EXTREMITIES: Normal range of motion. No clubbing or cyanosis. Peripheral pulses intact. No lower extremity edema NEUROLOGIC: Awake and alert. Oriented x 3. ASSESSMENT: Lightheadedness and blurry vision, possible TIA per neurology Intermittent second-degree type II heart block, on high-dose beta-lana outpatient Sinus mechanism with frequent PVCs, baseline for patient Prostate cancer, currently undergoing radiation therapy Hypertension Hyperlipidemia Diabetes Morbid obesity: BMI 51.5 Obstructive sleep apnea PLAN: Metoprolol discontinued yesterday. Telemetry reviewed this morning revealing sinus mechanism with no further episodes of second-degree heart block. 30 day event monitor at discharge Patient is cleared for discharge from cardiology and will follow-up with Dr. Vu Holman in 5 weeks. Nurse practitioner note has been reviewed by physician. Signing provider agrees with the documented findings, assessment, and plan of care documented by UTILITY GELATIN MAKER as a scribe. Objective - Vital Signs Vital signs: Vital Signs Temp 98.0 F 06/24/24 02:00 Pulse 68 06/24/24 02:00 Resp 18 06/24/24 02:00 BP 124/49 06/24/24 02:00 Pulse Ox 97 06/24/24 02:00 FiO2 21 06/24/24 03:16 Intake & Output 06/23/24 06/24/24 06/24/24 18:59 06:59 18:59 Intake Total 960 Balance 960 Intake: Oral 960 Other: Voiding Method Toilet # Voids 5 2 - Labs CBC & Chem 7: 06/21/24 11:08 06/21/24 11:08 Labs: Abnormal Lab Results - Last 24 Hours (Table) 06/23/24 06/23/24 Range/Units 17:16 20:05 POC Glucose (mg/dL) 161 H 132 H (70-110) mg/dL
--- NOTE | 2024-06-24 15:54 | P.DS ---
Providers Date of admission: 06/21/24 13:35 Attending physician: Jarrod Cordova MD Consults: 06/21/24 14:14 Consult Physician Urgent Consulting Provider: Luis Mendoza Consult Reason/Comments: Blurred vision and balance issues, evaluate for neurological Do you want consulting provider notified?: Yes 06/22/24 08:48 Consult Physician Routine Consulting Provider: Db Holman Consult Reason/Comments: 2nd degree av block Do you want consulting provider notified?: Yes Primary care physician: [facility] Hospital Course: Discharge Diagnosis: Intermittent second-degree type II heart block while on beta-blockers as outpatient Transient episodes of diplopia possibly due to TIA Frequent PVCs Prostate cancer on radiation therapy Hospital Course: 66 delete that a 74-year-old male with medical history of HTN, HLD, DM, prostate cancer, morbid obesity, BRISEIDA, who presented with blurry vision and lightheadedness. CTA head and neck revealed no acute process, MRI with no signs of acute stroke. Neurology was consulted, could not exclude TIA. Patient was started on Plavix and aspirin, after 21 days patient can stop Plavix but needs to be indefinitely on aspirin. Continued on statins.Patient was noted to be in type II AV block. Neurology consulted, home beta-lana was stopped and patient was continued on home amlodipine, losartan, prolactin, hydrochlorothiazide. Patient will be seen by cardiology in 5 weeks after discharge. Patient was instructed to request referral from his primary care physician to see a neurologist. Patient seen and examined at bedside.[] Vital signs reviewed and stable. General: [nontoxic], [no distress], [appears at stated age] Derm: [warm], [dry] Head: [atraumatic], [normocephalic], [symmetric] Eyes: [EOMI], [no lid lag], [anicteric sclera] Mouth: [no lip lesion], [mucus membranes moist] Cardiovascular: [S1S2 reg], [no murmur] Lungs: [CTA bilateral], [no rhonchi, no rales] , [no accessory muscle use] Abdominal: [soft], [ nontender to palpation], [no guarding], [no appreciable organomegaly] Ext: [no gross muscle atrophy], [no edema], [no contractures] Neuro: [ CN II-XI grossly intact], [no focal neuro deficits] Psych: [Alert], [oriented], [appropriate affect] A total of 35 minutes of time were spent preparing this complex discharge summary. Patient was discharged on 06/24/24. Patient Condition at Discharge: Fair Plan - Discharge Summary New Discharge Prescriptions: New Clopidogrel [Plavix] 75 mg PO DAILY #20 tab Loratadine [Claritin] 10 mg PO DAILY PRN tab PRN Reason: Allergy Symptoms Ferrous Sulfate [Iron (65 MG Elemental)] 325 mg PO Q48H tab Continue Aspirin 81 mg PO DAILY metFORMIN HCL [Glucophage] 1,000 mg PO BID-W/MEALS amLODIPine [Norvasc] 10 mg PO DAILY Pravastatin Sodium [Pravachol] 20 mg PO DAILY Meloxicam 15 mg PO DAILY allopurinoL [Zyloprim] 300 mg PO DAILY Mv-Min/Folic/K1/Lycopen/Lutein [Centrum Silver Men Tablet] 1 tab PO DAILY Insulin Glargine,Hum.rec.anlog [Lantus Solostar Pen] 34 unit SQ BID Losartan [Cozaar] 100 mg PO DAILY Capsaicin Cream [Trixaicin Cream] 1 applic TOPICAL TID PRN PRN Reason: neuropathy pain hydroCHLOROthiazide [Hydrodiuril] 50 mg PO DAILY Spironolactone [Aldactone] 50 mg PO DAILY tadalafiL 5 mg PO DAILY Lidocaine Cream (Unk) 1 applic TOPICAL TID PRN PRN Reason: neuropathy pain Cbd Oil (Unk) 1 dose TOPICAL BID PRN PRN Reason: diabetic neuropathy Levothyroxine Sodium [Synthroid] 200 mcg PO DAILY Zinc Gluconate [Zinc] 50 mg PO Q48H Pregabalin [Lyrica] 75 mg PO TID Sertraline [Zoloft] 50 mg PO DAILY Loratadine [Claritin] 10 mg PO DAILY PRN PRN Reason: Allergy Symptoms HYDROcodone/APAP 5-325MG [[place] 5-325] 1 tab PO QID Melatonin 3 mg PO HS PRN PRN Reason: Insomnia Vitamin C With Iron (Unknown Strength) 1 tab PO Q48H Cholecalciferol (Vitamin D3) [Vitamin D3 (50 Mcg = 2000 Iu)] 50 mcg PO DAILY Cyanocobalamin (Vitamin B-12) [Vitamin B-12] 2,500 mcg PO DAILY Magnesium Oxide [Mag-Ox] 400 mg PO HS Colchicine 0.6 mg PO DAILY PRN PRN Reason: gout attack tadalafiL 20 mg PO DAILY PRN PRN Reason: E.d. Discontinued Ferrous Sulfate [Iron] 325 mg PO Q48H Discharge Medication List Aspirin 81 mg PO DAILY 09/27/18 [History] Meloxicam 15 mg PO DAILY 09/27/18 [History] Pravastatin Sodium [Pravachol] 20 mg PO DAILY 09/27/18 [History] allopurinoL [Zyloprim] 300 mg PO DAILY 09/27/18 [History] amLODIPine [Norvasc] 10 mg PO DAILY 09/27/18 [History] metFORMIN HCL [Glucophage] 1,000 mg PO BID-W/MEALS 09/27/18 [History] Insulin Glargine,Hum.rec.anlog [Lantus Solostar Pen] 34 unit SQ BID 09/26/19 [History] Losartan [Cozaar] 100 mg PO DAILY 09/26/19 [History] Mv-Min/Folic/K1/Lycopen/Lutein [Centrum Silver Men Tablet] 1 tab PO DAILY 09/26/19 [History] Capsaicin Cream [Trixaicin Cream] 1 applic TOPICAL TID PRN 05/03/24 [History] Cbd Oil (Unk) 1 dose TOPICAL BID PRN 05/03/24 [History] HYDROcodone/APAP 5-325MG [[place] 5-325] 1 tab PO QID 05/03/24 [History] Lidocaine Cream (Unk) 1 applic TOPICAL TID PRN 05/03/24 [History] Loratadine [Claritin] 10 mg PO DAILY PRN 05/03/24 [History] Melatonin 3 mg PO HS PRN 05/03/24 [History] Spironolactone [Aldactone] 50 mg PO DAILY 05/03/24 [History] hydroCHLOROthiazide [Hydrodiuril] 50 mg PO DAILY 05/03/24 [History] tadalafiL 5 mg PO DAILY 05/03/24 [History] Cholecalciferol (Vitamin D3) [Vitamin D3 (50 Mcg = 2000 Iu)] 50 mcg PO DAILY 06/21/24 [History] Colchicine 0.6 mg PO DAILY PRN 06/21/24 [History] Cyanocobalamin (Vitamin B-12) [Vitamin B-12] 2,500 mcg PO DAILY 06/21/24 [History] Levothyroxine Sodium [Synthroid] 200 mcg PO DAILY 06/21/24 [History] Magnesium Oxide [Mag-Ox] 400 mg PO HS 06/21/24 [History] Pregabalin [Lyrica] 75 mg PO TID 06/21/24 [History] Sertraline [Zoloft] 50 mg PO DAILY 06/21/24 [History] Vitamin C With Iron (Unknown Strength) 1 tab PO Q48H 06/21/24 [History] Zinc Gluconate [Zinc] 50 mg PO Q48H 06/21/24 [History] tadalafiL 20 mg PO DAILY PRN 06/21/24 [History] Clopidogrel [Plavix] 75 mg PO DAILY #20 tab 06/24/24 [Rx] Ferrous Sulfate [Iron (65 MG Elemental)] 325 mg PO Q48H tab 06/24/24 [Rx] Loratadine [Claritin] 10 mg PO DAILY PRN tab 06/24/24 [Rx] Follow up Appointment(s)/Referral(s): Sunny Mckeon DO [Primary Care Provider] - 1-2 days Db Holman MD [STAFF PHYSICIAN] - 6 Weeks Patient Instructions/Handouts: Self Care Measures After a Stroke (GEN) Activity/Diet/Wound Care/Special Instructions: Please, follow up with your PCP, request neurology referral. Please, follow up with cardiology Discharge Disposition: HOME SELF-CARE
== END 2024-06-24 12:35 | disposition home or self-care (01) ==
LOC: EC 10:32 → 6NMEDSUR 13:35
PROVIDERS: ADMIT Family Medicine; ATTEND Family Medicine
DX: R42 Dizziness and giddiness (principal); H53.8 Other visual disturbances; H53.2 Diplopia; R26.89 Other abnormalities of gait and mobility; K21.9 Gastro-esophageal reflux disease without esophagitis; I10 Essential (primary) hypertension; E78.5 Hyperlipidemia, unspecified; N40.0 Benign prostatic hyperplasia without lower urinary tract symptoms; E11.9 Type 2 diabetes mellitus without complications; I44.1 Atrioventricular block, second degree; G47.33 Obstructive sleep apnea (adult) (pediatric); I49.3 Ventricular premature depolarization; R00.1 Bradycardia, unspecified; E66.01 Morbid (severe) obesity due to excess calories; Z68.43 Body mass index [BMI] 50.0-59.9, adult; Z85.46 Personal history of malignant neoplasm of prostate; Z87.891 Personal history of nicotine dependence; Z92.3 Personal history of irradiation; Z79.1 Long term (current) use of non-steroidal anti-inflammatories (NSAID); Z79.4 Long term (current) use of insulin; Z79.82 Long term (current) use of aspirin; Z79.84 Long term (current) use of oral hypoglycemic drugs; Z79.890 Hormone replacement therapy; Z79.899 Other long term (current) drug therapy; Z88.5 Allergy status to narcotic agent
CPT/HCPCS: 96372 ×3; 96374; 99285; 36415; 94660 ×3; 93005; 93270; 80061; 80053; 82550; 85025; 85610; 85730; 83721; 83036; 71046; 70496; 70450; 70498; 70551; G0378 ×4; C8929; J1650 ×3; J3490; Q9967; 93306

== ENCOUNTER 2024-07-31 06:44 | Day surgery (SDC) | payer MEDICARE ==
[2024-07-31] MEDS ORDERED: ceFAZolin 1 GM in SODIUM CHLORIDE 0.9% IRRIG BTL 250 ML IRRIGATION PRN (06:59)
[2024-07-31] MEDS ORDERED: ceFAZolin 3 GM in SODIUM CHLORIDE 0.9% 100 ML IVPB PRN (06:59)
[2024-07-31] MEDS: IV FLUID CONTINUATION 1,000 ML IV ONE (07:20)
[2024-07-31] MEDS: SODIUM CHLORIDE 0.9% 1,000 ML IV SCH ×2 (07:20→17:44)
[2024-07-31 07:31] LABS: Glucose,Whole Blood 120 mg/dL (70-110)
[2024-07-31 07:38] LABS: Basophils % (A) 0 %; Eosinophils # (A) 0.5 k/uL (0-0.7); Eosinophils % (A) 7 %; HCT 42.9 % (39.0-53.0); HGB 14.4 gm/dL (13.0-17.5); Lymphocytes # (A) 1.2 k/uL (1.0-4.8); Lymphocytes % (A) 19 %; MCHC 33.6 g/dL (31.0-37.0); MCV 92.4 fL (80.0-100.0); Monocytes # (A) 0.5 k/uL (0-1.0); Monocytes % (A) 8 %; Neutrophils # (A) 4.2 k/uL (1.3-7.7); Neutrophils % (A) 65 %; Platelet Count 164 k/uL (150-450); RBC 4.65 m/uL (4.30-5.90); RDW 13.8 % (11.5-15.5); WBC 6.5 k/uL (3.8-10.6)
[2024-07-31 07:44] LABS: African American GFR (CKD) 82 (>60 ml/min/1.73 sqM); Anion Gap 11 mmol/L; Blood Urea Nitrogen 26 mg/dL (9-20); Calcium 9.8 mg/dL (8.4-10.2); Carbon Dioxide 24 mmol/L (22-30); Chloride 106 mmol/L (98-107); Glucose 132 mg/dL (74-99); Non-African American GFR(CKD) 71 (>60 ml/min/1.73 sqM); Potassium 4.3 mmol/L (3.5-5.1); Sodium 141 mmol/L (137-145)
[2024-07-31] MEDS: MIDAZOLAM 2 MG/2 ML VIAL IVP ONE ×5 (08:39→10:11)
[2024-07-31] MEDS: ceFAZolin 1,000 MG VIAL IVPB ONE (08:40)
[2024-07-31] MEDS: fentaNYL (PF) 50 MCG/ML 2 ML AMP IVP ONE ×6 (08:40→10:11)
[2024-07-31] MEDS: LIDOCAINE 1% INJ 10MG/ML (20 ML MDV) SQ ONE (08:43)
[2024-07-31] MEDS: SODIUM CHLORIDE 0.9% 1,000 ML IV ONE (09:25)
[2024-07-31] MEDS ORDERED: ACETAMINOPHEN TAB 325 MG TAB PO PRN (13:30)
[2024-07-31] MEDS ORDERED: LORATADINE 10 MG TAB PO PRN (13:30)
[2024-07-31] MEDS ORDERED: COLCHICINE 0.6 MG EACH PO PRN (13:30)
[2024-07-31] MEDS ORDERED: MELATONIN 3 MG TABLET PO PRN (13:30)
[2024-07-31] MEDS ORDERED: LIDOCAINE 4% CREAM 5 GM TUBE TOPICAL PRN (13:30)
--- NOTE | 2024-07-31 14:12 | XR ---
EXAMINATION TYPE: XR chest 1V portable DATE OF EXAM: 07/31/2024 1:52 PM COMPARISON: Chest radiographs from 06/21/2024 CLINICAL INDICATION: Male, 74 years old with history of Lead placement check; TECHNIQUE: XR chest 1V portable Frontal view of the chest. FINDINGS: Lungs/Pleura: There is no evidence of pleural effusion, focal consolidation, or pneumothorax. Pulmonary vascularity: Unremarkable. Heart/mediastinum: Cardiomediastinal silhouette is unremarkable. Two lead cardiac conduction device o verlying the left hemithorax with lead tips projecting over the right ventricle and right atrium. Musculoskeletal: No acute osseous pathology. IMPRESSION: No acute cardiopulmonary disease/process. [facility], , 07/31/2024 2:10 PM
[2024-07-31] MEDS: ceFAZolin 3 GM in SODIUM CHLORIDE 0.9% 100 ML IVPB SCH (14:40)
[2024-07-31] MEDS: HYDROcodone/APAP 5-325MG 1 EACH TAB PO SCH (17:02)
[2024-07-31] MEDS: FERROUS SULFATE 325 MG TAB PO SCH (17:04)
[2024-07-31 17:36] LABS: Glucose,Whole Blood 99 mg/dL (70-110)
[2024-07-31] MEDS: PREGABALIN 75 MG CAP PO SCH (18:41)
[2024-07-31] MEDS: metFORMIN 500 MG TAB PO SCH (18:42)
[2024-07-31 19:45] LABS: Glucose,Whole Blood 165 mg/dL (70-110)
[2024-07-31] MEDS: INSULIN DETEMIR (LEVEMIR) 100 UNIT/ML SYR SQ SCH (20:53)
[2024-07-31] MEDS: MAGNESIUM OXIDE 400 MG TAB PO SCH (20:54)
[2024-08-01] MEDS: HYDROcodone/APAP 5-325MG 1 EACH TAB PO SCH (01:16)
[2024-08-01 06:11] LABS: Glucose,Whole Blood 230 mg/dL (70-110)
[2024-08-01] MEDS: LEVOTHYROXINE 100 MCG TAB PO SCH (06:32)
--- NOTE | 2024-08-01 07:49 | P.DS ---
Providers Attending physician: Juan Jose Jim DO [facility] [place] Hospital Course: Patient is a pleasant 74-year-old male with history of hypertension, hyperlipidemia, morbid obesity, diabetes mellitus type 2, multiple medical comorbidities who presented for elective dual-chamber permanent pacemaker placement. He has been having intermittent second-degree heart block's on metoprolol which were symptomatic with lightheadedness and blurry vision. The metoprolol was stopped and patient started having more nonsustained ventricular tachycardia. Given need for beta lana as well as symptomatic bradycardia dual-chamber permanent pacemaker was recommended and patient had dual-chamber permanent pacemaker placed on 07/31/2024. There were no reversible causes for his bradycardia. Patient denies any chest pain or pressure or shortness breath today and appears stable for discharge home with outpatient follow-up in one week. Plan - Discharge Summary Discharge Rx Participant: No New Discharge Prescriptions: No Action Aspirin 81 mg PO DAILY metFORMIN HCL [Glucophage] 1,000 mg PO BID-W/MEALS amLODIPine [Norvasc] 10 mg PO DAILY Pravastatin Sodium [Pravachol] 20 mg PO DAILY Meloxicam 15 mg PO DAILY allopurinoL [Zyloprim] 300 mg PO DAILY Mv-Min/Folic/K1/Lycopen/Lutein [Centrum Silver Men Tablet] 1 tab PO DAILY Insulin Glargine,Hum.rec.anlog [Lantus Solostar Pen] 34 unit SQ BID Losartan [Cozaar] 100 mg PO DAILY Capsaicin Cream [Trixaicin Cream] 1 applic TOPICAL TID PRN PRN Reason: neuropathy pain hydroCHLOROthiazide [Hydrodiuril] 50 mg PO DAILY Spironolactone [Aldactone] 50 mg PO DAILY tadalafiL 5 mg PO DAILY Lidocaine Cream (Unk) 1 applic TOPICAL TID PRN PRN Reason: neuropathy pain Cbd Oil (Unk) 1 dose TOPICAL BID PRN PRN Reason: diabetic neuropathy Levothyroxine Sodium [Synthroid] 200 mcg PO DAILY Zinc Gluconate [Zinc] 50 mg PO Q48H Pregabalin [Lyrica] 75 mg PO TID Sertraline [Zoloft] 50 mg PO DAILY Loratadine [Claritin] 10 mg PO DAILY PRN PRN Reason: Allergy Symptoms HYDROcodone/APAP 5-325MG [[place] 5-325] 1 tab PO QID Melatonin 3 mg PO HS PRN PRN Reason: Insomnia Vitamin C With Iron (Unknown Strength) 1 tab PO Q48H Cholecalciferol (Vitamin D3) [Vitamin D3 (50 Mcg = 2000 Iu)] 50 mcg PO DAILY Cyanocobalamin (Vitamin B-12) [Vitamin B-12] 2,500 mcg PO DAILY Magnesium Oxide [Mag-Ox] 400 mg PO HS Colchicine 0.6 mg PO DAILY PRN PRN Reason: gout attack tadalafiL 20 mg PO DAILY PRN PRN Reason: E.d. Ferrous Sulfate [Iron (65 MG Elemental)] 325 mg PO Q48H tab Tamsulosin [Flomax] 0.4 mg PO DAILY Discharge Medication List Aspirin 81 mg PO DAILY 09/27/18 [History] Meloxicam 15 mg PO DAILY 09/27/18 [History] Pravastatin Sodium [Pravachol] 20 mg PO DAILY 09/27/18 [History] allopurinoL [Zyloprim] 300 mg PO DAILY 09/27/18 [History] amLODIPine [Norvasc] 10 mg PO DAILY 09/27/18 [History] metFORMIN HCL [Glucophage] 1,000 mg PO BID-W/MEALS 09/27/18 [History] Insulin Glargine,Hum.rec.anlog [Lantus Solostar Pen] 34 unit SQ BID 09/26/19 [History] Losartan [Cozaar] 100 mg PO DAILY 09/26/19 [History] Mv-Min/Folic/K1/Lycopen/Lutein [Centrum Silver Men Tablet] 1 tab PO DAILY 09/26/19 [History] Capsaicin Cream [Trixaicin Cream] 1 applic TOPICAL TID PRN 05/03/24 [History] Cbd Oil (Unk) 1 dose TOPICAL BID PRN 05/03/24 [History] HYDROcodone/APAP 5-325MG [[place] 5-325] 1 tab PO QID 05/03/24 [History] Lidocaine Cream (Unk) 1 applic TOPICAL TID PRN 05/03/24 [History] Loratadine [Claritin] 10 mg PO DAILY PRN 05/03/24 [History] Melatonin 3 mg PO HS PRN 05/03/24 [History] Spironolactone [Aldactone] 50 mg PO DAILY 05/03/24 [History] hydroCHLOROthiazide [Hydrodiuril] 50 mg PO DAILY 05/03/24 [History] tadalafiL 5 mg PO DAILY 05/03/24 [History] Cholecalciferol (Vitamin D3) [Vitamin D3 (50 Mcg = 2000 Iu)] 50 mcg PO DAILY 06/21/24 [History] Colchicine 0.6 mg PO DAILY PRN 06/21/24 [History] Cyanocobalamin (Vitamin B-12) [Vitamin B-12] 2,500 mcg PO DAILY 06/21/24 [History] Levothyroxine Sodium [Synthroid] 200 mcg PO DAILY 06/21/24 [History] Magnesium Oxide [Mag-Ox] 400 mg PO HS 06/21/24 [History] Pregabalin [Lyrica] 75 mg PO TID 06/21/24 [History] Sertraline [Zoloft] 50 mg PO DAILY 06/21/24 [History] Vitamin C With Iron (Unknown Strength) 1 tab PO Q48H 06/21/24 [History] Zinc Gluconate [Zinc] 50 mg PO Q48H 06/21/24 [History] tadalafiL 20 mg PO DAILY PRN 06/21/24 [History] Ferrous Sulfate [Iron (65 MG Elemental)] 325 mg PO Q48H tab 06/24/24 [Rx] Tamsulosin [Flomax] 0.4 mg PO DAILY 07/15/24 [History]
[2024-08-01 08:17] VITALS: BP 158/71; PULSE 61; RESP 17; TEMP 98.4
[2024-08-01] MEDS: LOSARTAN 50 MG TAB PO SCH (08:58)
[2024-08-01] MEDS: SERTRALINE 50 MG TAB PO SCH (08:58)
[2024-08-01] MEDS: ASPIRIN 81 MG PO SCH (08:58)
[2024-08-01] MEDS: amLODIPine 10 MG TAB PO SCH (08:58)
[2024-08-01] MEDS: allopurinoL 300 MG TAB PO SCH (08:59)
[2024-08-01] MEDS: PRAVASTATIN SODIUM 20 MG TAB PO SCH (08:59)
[2024-08-01] MEDS: SPIRONOLACTONE 25 MG TAB PO SCH (08:59)
[2024-08-01] MEDS: MELOXICAM 7.5 MG TAB PO SCH (08:59)
[2024-08-01] MEDS: TAMSULOSIN 0.4 MG CAP.ER.24H PO SCH (09:00)
--- NOTE | 2024-08-01 22:48 | P.PCN ---
Description of Procedure: CARDIOLOGY PROCEDURE NOTE Chinese Medicine Practitioner: Dr. 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 The patient was taken to the cardiac catheterization suite where the left subclavian area was sterily prepped and draped in the usual fashion. One percent lidocaine was used to anesthetize the left subclavian area. Twenty milliliters of Isoview 370 contrast was injected into the left antecubital vein to allow for direct visualization of the left subclavian vein under fluoroscopy. A 1.5 inch incision was made utilizing a #15 blade in the left subclavian site. Hemostasis was made complete. Electrocautery along with digital blunt dissection was utilized to dissect to the level of the pectoralis muscle fascia and create a pocket large enough to accommodate the generator. A thin walled micro puncuture needle was used to cannulate the left subclavian vein. A guide-wire was inserted through the needle into the vascular lumen under fluoroscopic guidance. The needle was removed. Another thin walled micr puncture needle was used to again cannulate the left subclavian vein. A guide-wire was inserted through the needle into the vascular lumen under fluoroscopic guidance. The needle was removed and both guide-wires were attached to the field. A venous sheath and dilator were advanced over the guidewire into the vascular lumen under fluoroscopic guidance. The dilator and guidewire were then removed. A right ventricular bipolar lead was inserted into the sheath and advanced under fluoroscopic guidance into the right ventricle under fluoroscopic guidance. Adequate sensing and pacing thresholds were achieved and the lead was screwed into place in the RV septum. The sheath was then torn away. The lead collar was advanced and anchored into place utilizing #0 silk suture. Next, another venous sheath and dilator were advanced under fluoroscopic guidance into the vascular lumen over the guidewire. After removal of the dilator and guidewire, a right atrial bipolar lead was inserted into this sheath and advanced under fluoroscopic guidance into the right atrium. The lead was positioned into the right atrial appendage. Adequate sensing and pacing thresholds were then achieved with patient being in Aflutter at the time and the lead was screwed into place. The sheath was then torn away. The lead collar was advanced and anchored into place utilizing #0 silk suture. The leads were then inserted into the appropriate position into the generator. They were then secured with the setscrew provided. The leads and generator were inserted into the pocket with the leads posterior. The subcutaneous tissue was approximated utilizing #2.0 and 3.0 vicryl in an interrupted stitch fashion. The dermal layer was approximated utilizing #4.0 vicryl. The area was cleansed with sterile saline and dried. A sterile 4x4 dressing was applied and the patient was transferred to the post catheterization holding area in stable and satisfactory condition. The patient tolerated the procedure well. Generator Data Bag Checker: [employer] Brand: [id number] Susanne XT DR MRI Model #: W1DR01 Serial#: [id number] Right Atrial Bipolar Lead Data: Type: Active fixation lead Bag Checker: [employer] Model#: 5076-52 Serial Number: [id number] Right Ventricular Bipolar Lead Data: Type: Active fixation lead Bag Checker: [employer] Model #: 5076-58 Serial #: [id number] Stimulation Thresholds: Right atrial bipolar lead pacing and sensing thresholds Voltage: 1.375V Impedance: 475 ohms P-wave sensin.6 mV Right Ventricular bipolar lead pacing and sensing thresholds Pulse Width: 0.4ms Voltage: 0.75 volts Impedance: 855 ohms R-wave sensin mV Parameter Setting: Pacing mode is AAIR<=>DDDR Lower rate 60 bpm Upper rate 130 bpm Impressions: 1. Successful implantation of a dual chamber permanent pacemaker in the left pectoral site. Plan: 1. Routine post procedure care will be instituted as well as outpatient follow- up surveillance.
== END 2024-08-01 13:19 | disposition home or self-care (01) ==
LOC: CATHEP 06:44 → 6NMEDSUR 11:25 → CATHEP 08-01 13:19
PROVIDERS: ATTEND Internal Medicine
DX: I44.1 Atrioventricular block, second degree (principal); E11.9 Type 2 diabetes mellitus without complications; E66.01 Morbid (severe) obesity due to excess calories; E78.5 Hyperlipidemia, unspecified; I10 Essential (primary) hypertension; I47.10 Supraventricular tachycardia, unspecified; I47.20 Ventricular tachycardia, unspecified; Z79.4 Long term (current) use of insulin; Z79.82 Long term (current) use of aspirin; Z79.84 Long term (current) use of oral hypoglycemic drugs; Z79.899 Other long term (current) drug therapy; Z87.891 Personal history of nicotine dependence; Z79.1 Long term (current) use of non-steroidal anti-inflammatories (NSAID)
CPT/HCPCS: 94660 ×2; 33208; 80048; 85025; 71045; C1892; C1898; C1769; C1785; J2250; J0690 ×2; J2003; J3010

== ENCOUNTER → 2024-08-05 | Day surgery (SDC) | payer MEDICARE ==
[~2024-08-05] MED LIST: ACETAMINOPHEN TAB 325 MG TAB PO PRN; SODIUM CHLORIDE 0.9% 1,000 ML IV SCH; ceFAZolin 1 GM in SODIUM CHLORIDE 0.9% IRRIG BTL 250 ML IRRIGATION PRN; ceFAZolin 3 GM in SODIUM CHLORIDE 0.9% 100 ML IVPB PRN
[2024-08-05] MEDS: IV FLUID CONTINUATION 1,000 ML IV ONE (12:27)
[2024-08-05] MEDS: SODIUM CHLORIDE 0.9% 1,000 ML IV SCH (12:27)
[2024-08-05 12:38] LABS: Glucose,Whole Blood 115 mg/dL (70-110)
[2024-08-05 12:52] VITALS: TEMP 98.6
[2024-08-05] MEDS: fentaNYL (PF) 50 MCG/ML 2 ML AMP IVP ONE ×4 (13:54→14:58)
[2024-08-05] MEDS: MIDAZOLAM 2 MG/2 ML VIAL IVP ONE ×4 (13:54→14:58)
[2024-08-05] MEDS: LIDOCAINE 1% INJ 10MG/ML (20 ML MDV) SQ ONE (13:57)
[2024-08-05] MEDS: ceFAZolin 1,000 MG VIAL IVPB ONE (14:00)
--- NOTE | 2024-08-05 17:24 | XR ---
EXAMINATION TYPE: XR chest 1V portable DATE OF EXAM: 08/05/2024 5:10 PM COMPARISON: Chest radiographs from 07/31/2024 CLINICAL INDICATION: Male, 74 years old with history of Lead placement check; TECHNIQUE: XR chest 1V portable Frontal view of the chest. FINDINGS: Lungs/Pleura: There is no evidence of pleural effusion, focal consolidation, or pneumothorax. Pulmonary vascularity: Unremarkable. Heart/mediastinum: Cardiomediastinal silhouette is unremarkable. Two lead cardiac conduction device o verlying the left hemithorax with lead tips projecting over the right ventricle and right atrium. Musculoskeletal: No acute osseous pathology. IMPRESSION: No acute cardiopulmonary disease/process. [facility], , 08/05/2024 5:22 PM
[2024-08-05 18:28] VITALS: BP 142/64; PULSE 68; RESP 18
--- NOTE | 2024-08-06 17:54 | P.PCN ---
Description of Procedure: CARDIOLOGY PROCEDURE NOTE Customer Service Officer: Dr. Juan Jose Jim Procedure performed: Right atrial lead revision Site: Left subclavian Indications: 2nd degree AV block s/p dual chamber permanent pacemaker with findings of right atrial lead malfunction, dislodgement on Xray and interrogation Complications: None Blood Loss: Minimal Description of Procedure: After the risks, benefits, and alternatives of the above-mentioned procedure was explained in detail with the patient, informed consent was obtained. The patient was taken to the cardiac catheterization suite where the left subclavian area was sterily prepped and draped in the usual fashion. One percent lidocaine was used to anesthetize the left subclavian area. The previously placed incision was opened utilizing a #15 blade in the left subclavian site by cutting the prior sutures. Hemostasis was made complete. Digital blunt dissection with cutting of sutures was utilized to dissect to the level of the pectoralis muscle fascia and the previously placed generator. The RV lead appeared stable on interrogation and imaging however the RA lead was noted to be malpositioned not in the appendage as previously placed. Initially attempts were made at repositioning of the lead however not successful. Therefore the old lead was pulled and a new access was obtained using ultrasound guidance and a micropuncture technique. Through a new sheath, a new right atrial bipolar lead was inserted into this sheath and advanced under fluoroscopic guidance into the right atrium. The lead was positioned into the right atrial appendage. Adequate sensing and pacing thresholds were then achieved and the lead was screwed into place. The sheath was then torn away. The lead collar was advanced and anchored into place utilizing #0 silk suture. The leads were then inserted into the appropriate position into the generator. They were then secured with the setscrew provided. The leads and generator were inserted into the pocket with the leads posterior. The subcutaneous tissue was approximated utilizing #2.0 and 3.0 vicryl in an interrupted stitch fashion. The dermal layer was approximated utilizing #4.0 vicryl. The area was cleansed with sterile saline and dried. A sterile 4x4 dressing was applied and the patient was transferred to the post catheterization holding area in stable and satisfactory condition. The patient tolerated the procedure well. Generator Data Egg Grader: [employer] Brand: [id number] [place] XT DR MRI Model #: [id number] Serial#: [id number] Right Atrial Bipolar Lead Data: Type: Active fixation lead Egg Grader: [employer] Model#: 5076-52 Serial Number: [id number] Right Ventricular Bipolar Lead Data: Type: Active fixation lead Egg Grader: [employer] Model #: 5076-58 Serial #: [id number] Stimulation Thresholds: Right atrial bipolar lead pacing and sensing thresholds Voltage: 0.5 V Impedance: 494 ohms P-wave sensin.1 mV Right Ventricular bipolar lead pacing and sensing thresholds Pulse Width: 0.4ms Voltage: 1.5 volts Impedance: 380 ohms R-wave sensin.5 mV Parameter Setting: Pacing mode is AAIR<=>DDDR Lower rate 50 bpm Upper rate 130 bpm Impressions: 1. Successful lead revision of right atrial lead of a dual chamber permanent pacemaker Plan: 1. Routine post procedure care will be instituted as well as outpatient follow- up surveillance.
== END ==
LOC: CATHEP 11:31
PROVIDERS: ATTEND Internal Medicine
DX: I44.1 Atrioventricular block, second degree (principal); I25.10 Atherosclerotic heart disease of native coronary artery without angina pectoris; I10 Essential (primary) hypertension; E78.2 Mixed hyperlipidemia; E11.9 Type 2 diabetes mellitus without complications; F17.210 Nicotine dependence, cigarettes, uncomplicated; Z95.0 Presence of cardiac pacemaker; Z82.49 Family history of ischemic heart disease and other diseases of the circulatory system; Z79.82 Long term (current) use of aspirin; Z79.890 Hormone replacement therapy; Z79.899 Other long term (current) drug therapy
CPT/HCPCS: 33216; 71045; C1898; J2250; J0690; J2003; J3010